=== PATIENT | male | born 1990 | race Caucasian/White ===

== ENCOUNTER 2022-03-09 13:08 | Inpatient (IN) ==
[2022-03-09] MEDS ORDERED: SODIUM CHLORIDE 0.9% 1000ML 2,000 ML IV ONE (13:54)
[2022-03-09] MEDS ORDERED: FAMOTIDINE 20MG IV PUSH 20 MG/5 ML SYR IV STA (14:06)
[2022-03-09 14:18] LABS: Hematocrit (blood only) 41.5 % (40.1-51.0); Hemoglobin 15.1 g/dl (14.0-18.0); Mean Corpuscular Hemoglobin 30.3 pg (25.0-34.0); Mean Corpuscular Hgb Conc 36.4 g/dL (32.0-36.0); Mean Corpuscular Volume 83.2 fL (80.0-100.0); Mean Platelet Volume 11.4 fL (9.4-12.4); Platelet Count 104 K/uL (130-400); RDW Coefficient of Variation 12.3 % (11.5-14.5); RDW Standard Deviation 37.5 fL (36.4-46.3); Red Blood Count 4.99 M/uL (4.63-6.08); White Blood Count 4.35 K/ul (4.8-10.8)
[2022-03-09 14:32] LABS: Basophils # (auto) 0.01 K/uL (0-0.2); Basophils % (auto) 0.2 %; Eosinophils # (auto) 0.04 K/uL (0-0.50); Eosinophils % (auto) 0.9 %; Immature Granulocytes # (auto) 0.01 K/uL (0.00-0.02); Immature Granulocytes % (auto) 0.2 %; Lymphocytes # (auto) 0.79 K/uL (1.2-3.4); Lymphocytes % (auto) 18.2 %; Monocytes # (auto) 0.17 K/uL (0.24-0.82); Monocytes % (auto) 3.9 %; Neutrophils # (auto) 3.33 K/uL (1.4-6.5); Neutrophils % (auto) 76.6 %
[2022-03-09 14:47] LABS: Lyme Ab IgG w/WB Rflx Negative (Negative)
--- NOTE | 2022-03-09 14:47 | XRay Report ---
XR chest 1V portable HISTORY: 32 years-old Male fever, n/v acute fever with nausea and vomiting COMPARISON: None TECHNIQUE: AP view of the chest FINDINGS: The cardiomediastinal and hilar silhouettes are within normal limits. No pneumothorax, pleural effusi on, airspace consolidation or overt pulmonary edema. A nipple shadow projects over the left midlung. Bones of the chest appear grossly intact. IMPRESSION: No acute process. ACT 112: Negative or not required by law. The above report was generated using voice recognition software. It may contain grammatical, syntax o r spelling errors. Electronically signed by: Eder Holley M.D. 03/09/2022 2:46 PM
[2022-03-09 14:48] LABS: Lyme Ab IgM w/WB Rflx Negative (Negative)
[2022-03-09 14:52] LABS: Albumin Globulin Ratio 1.4 (0.9-2); Albumin Level 3.8 gm/dl (3.4-5.0); BUN Creatinine Ratio 14.5 (10-20); Bilirubin,Total 6.6 mg/dl (0.2-1.0); C Reactive Protein 2.67 mg/dl (0-0.5); Calcium 8.4 mg/dl (8.5-10.1); Creatinine Clr Calc Pharmacy 119.5 ml/min; Est GFR (African American) 134.9 ml/min; Est GFR (Non-African American) 116.4 ml/min; Globulin 2.7 gm/dl (2.5-4.0); Magnesium 1.9 mg/dl (1.7-2.4); Phosphorus 1.9 mg/dl (2.5-4.9); Potassium 3.4 mmol/L (3.5-5.1); Total Protein 6.5 gm/dl (6.0-8.3)
--- NOTE | 2022-03-09 14:56 | Emergency Department Note ---
Impression & Plan Febrile illness, Jaundice, Orchitis, Splenomegaly, Hypophosphatemia, Lymphopenia, Thrombocytopenia, Transaminitis ED Provider Note NAME: ANMOL BERRY AGE: 32 SEX: M ARRIVES VIA: Walk-In INFORMANT: Patient ED PROVIDER(S): Clifton Marquez MD CHIEF COMPLAINT: Fever, bodyaches, jaundice, referred. PLAN: Disposition: Admit MEDICAL DECISION MAKING: The patient is a pleasant 32-year-old gentleman with a past medical history of ulcerative colitis on mesalamine who presents emergency department referred by his PCPs office for ongoing body aches, fevers nausea, vomiting with decreased appetite that began last Friday. The patient had blood work performed to the [facility] system including testing for tickborne illness but they understand this was negative for Lyme and Anaplasma. However was referred to emergency department for additional testing of additional tickborne illness. He reports continued to have dark yellow urine. He denies cough or congestion. He reports he did have COVID-19 in December of this year and had subsequently had negative home tests. During his recent illness he has also taken repeated home test that were negative. He does report increased soreness in bilateral testicles which has evolved over the past several days. He denies excessive Tylenol use. On arrival the patient is fatigued appearing but no distress, afebrile stable vital signs. He appears clinically dry. His joints are nonedematous or warm. He is full range of motion. He has mild lower abdominal discomfort without discrete tenderness. He has no discrete tenderness of bilateral epididymitis or testicles though reports subjective pain. Cremasteric reflex is intact. Neck is supple with full range of motion. No neurologic deficits. He has subtle icterus of bilateral sclera. EKG without overt acute ischemia. CXR negative for acute cardiopulmonary process. WBC 4.3K with lymphopenia 0.79, nonspecific. H/H within normal limits. Plate lets 104K. Chemistry without metabolic acidosis. Potassium 3.4, phosphorus 1.9 and magnesium 1.9. Lactic acid 1.1, within normal limits. Procalcitonin is mildly elevated at 0.55. ESR within normal limits. CRP is elevated 2.6. LFTs demonstrate transaminitis with total bilirubin of 6.6, direct bilirubin of 3.3 and AST of 86. High-sensitivity troponin 5.5, within normal limits. Lipase not elevated. UA without convincing evidence of infection. Respiratory viral panel/bio fire was negative including negative COVID-19 PCR. Lyme screen was negative. Babesia and Anaplasma smear negative. DNA testing pending for Anaplasma, Babesia, Ehrlichia. Monospot was negative with EBV panel pending. CT of the abdomen pelvis was performed and demonstrates moderate splenomegaly. Additionally noted is mildly dilated appendix at 8 mm with trace periappendiceal inflammation. Patient was reevaluated and has no right lower quadrant pain and so findings are nonspecific. Scrotal ultrasound demonstrates equivocal hyperemia bilateral testes which may suggest orchitis. Unclear etiology of the patient's illness at this time however pattern of CBC and LFTs would be consistent with tickborne illness such as Anaplasma and so repeat testing may help clarify this given he apparently had a negative PCR test this week. Viral illness is also still a consideration. He was treated empirically with IV doxycycline as well as IV ceftriaxone for possible component of orchitis. Case was reviewed with general surgery on-call, Dr. Mayberry, appreciate recommendations and agrees that acute appendicitis is not likely. However in the event that this may reflect early appendicitis certainly is not the primary process in would not consider surgery until his primary illness stabilizes. Case was discussed with Ki Webb, with Dr. Nerissa patel who will evaluate the patient for admission. Triage Nursing notes reviewed and agree them. Prior medical records reviewed Vital Signs: reviewed and remarkable for no significant abnormalities. Differential diagnosis: Viral syndrome, otitis, pharyngitis, pneumonia, influenza, meningitis, urinary tract infection, sepsis, bacteremia, as well as other pathologies. ER treatment provided: See below. Diagnostics interpreted by me: ECG: Normal sinus rhythm, 80 bpm, no ectopy, incomplete right bundle branch block, no overt ST elevation or depression, QTC 46, QRS 108 Cardiac Monitoring: An order for continuous cardiac monitoring was placed and demonstrated Normal sinus rhythm, 80 bpm, no ectopy. Laboratory studies: See below Imaging studies: See below Consultation(s): Ki Webb, with Dr. Nerissa patel. HPI: The patient is a pleasant 32-year-old gentleman with a past medical history of ulcerative colitis on mesalamine who presents emergency department referred by his PCPs office for ongoing body aches, fevers nausea, vomiting with decreased appetite that began last Friday. The patient had blood work performed to the [facility] system including testing for tickborne illness but they understand this was negative for Lyme and Anaplasma. However was referred to emergency department for additional testing of additional tickborne illness. He reports continued to have dark yellow urine. He denies cough or congestion. He reports he did have COVID-19 in December of this year and had subsequently had negative home tests. During his recent illness he has also taken repeated home test that were negative. He does report increased soreness in bilateral testicles which has evolved over the past several days. He denies excessive Tylenol use. ROS: See above HPI for pertinent positives & negatives. A total of 10 systems reviewed and were otherwise negative. VITALS:See Below PHYSICAL EXAMINATION: GENERAL: Awake, alert, fatigued-appearing, in no distress HENT: Normocephalic, atraumatic. Oropharynx with dry mucous membranes and otherwise unremarkable. EYES: Normal conjunctiva. Subtle icterus of bilateral sclera. NECK: Supple. No nuchal rigidity. FROM. No JVD. RESPIRATORY: Clear to auscultation. CARDIAC: Regular rate, normal rhythm. Extremities warm and well perfused. Pulses equal. ABDOMEN: Soft, non-distended. No tenderness to palpation. No rebound or guarding. No masses. RECTAL: Deferred. : No discrete tenderness of bilateral epididymitis or testicles though reports subjective pain. Cremasteric reflex is intact. MUSCULOSKELETAL: Chest examination reveals no tenderness. The back is symmetrical on inspection without obvious abnormality. There is no CVA tenderness to palpation. Joints are nonedematous or warm. He is full range of motion. He has mild lower abdominal discomfort without discrete tenderness. LOWER EXTREMITIES: Calves are equal size bilaterally and non-tender. No edema. No discoloration. NEURO: Normal sensorium. No sensory or motor deficits noted. SKIN: Mild skin flushing. Mild jaundice noted. ED COURSE: Critical Care: I have personally spent greater than 75 minutes of critical care time in the direct management of this patient. This includes bedside care, interpretation of diagnostic studies, and testing, discussion with consultants, patient, and family members, and other required patient management activities. This 75 minutes is in excess of all separately billable procedures. Clifton Marquez MD Past Med/Surg History Medical History Family history of gastrointestinal disorder Peyronie disease Ulcerative colitis Family History Other Gastrointestinal disorder Social History Smoking Status: Never smoker Do You Dip or Chew Tobacco: No; Hx Alcohol Use: Yes Alcohol type: beer and hard liquor Hx Substance Use: No Preferred Language: Wolof Communication Ability: Effective Emergency Operator Required: No Beliefs That Will Affect Care: None Current Living Situation: Spouse Other Information That Helps Us Care for You: No Feels Safe at Home: Yes Safety Concerns: Feels Safe At This Time Assistive Devices: None Allergies Allergies Allergy/AdvReac Type Severity Reaction Status Date / Time PREDISONE Allergy Unknown HIVES Uncoded 03/09/22 16:27 Home Meds Home Medications Medication Instructions Recorded Confirmed doxycycline hyclate 100 mg capsule 100 mg PO BID 03/09/22 03/09/22 famotidine 20 mg tablet (Pepcid AC) 20 mg PO BID PRN Acid Reflux 03/09/22 03/09/22 mesalamine 1.2 gram tablet,delayed 4.8 g PO DAILY 03/09/22 03/09/22 release ondansetron HCl 4 mg tablet 2 - 4 mg PO Q8 PRN Nausea 03/09/22 03/09/22 Results & Data (ED) Vital Signs Vital Signs - 24 hr 03/09/22 13:19 03/09/22 13:49 03/09/22 13:58 Temperature 37.2 C Temperature Source Oral Pulse Rate 86 80 Pulse Rate [Apical] 81 Pulse Rate from SpO2 Sensor Respiratory Rate 18 20 18 Respiratory Effort / Characteristics Non-Labored Spontaneous Respiratory Depth Normal Respiratory Pattern Regular Blood Pressure 125/86 Blood Pressure [Left Arm] 121/84 Blood Pressure Mean 99 Blood Pressure Mean [Left Arm] 96 Blood Pressure Position Sitting Pulse Oximetry 99 100 100 Oxygen Delivery Method Room Air Room Air Room Air Sepsis Recent Fever Within 48 Hours Yes Sepsis New/Unexplained Change in Mental Status No Sepsis Action Taken by Nursing No Action Required 03/09/22 13:40 03/09/22 13:46 03/09/22 13:46 Temperature Temperature Source Pulse Rate 76 79 Pulse Rate [Apical] Pulse Rate from SpO2 Sensor 79 Respiratory Rate 23 18 Respiratory Effort / Characteristics Respiratory Depth Respiratory Pattern Blood Pressure 121/84 Blood Pressure [Left Arm] Blood Pressure Mean 96 Blood Pressure Mean [Left Arm] Blood Pressure Position Pulse Oximetry 99 Oxygen Delivery Method Sepsis Recent Fever Within 48 Hours Sepsis New/Unexplained Change in Mental Status Sepsis Action Taken by Nursing 03/09/22 14:00 03/09/22 14:00 03/09/22 14:30 Temperature Temperature Source Pulse Rate 80 77 Pulse Rate [Apical] Pulse Rate from SpO2 Sensor 79 78 Respiratory Rate 17 20 Respiratory Effort / Characteristics Respiratory Depth Respiratory Pattern Blood Pressure 129/96 Blood Pressure [Left Arm] Blood Pressure Mean 107 Blood Pressure Mean [Left Arm] Blood Pressure Position Pulse Oximetry 100 99 Oxygen Delivery Method Sepsis Recent Fever Within 48 Hours Sepsis New/Unexplained Change in Mental Status Sepsis Action Taken by Nursing 03/09/22 14:54 03/09/22 14:54 03/09/22 15:00 Temperature Temperature Source Pulse Rate 79 Pulse Rate [Apical] Pulse Rate from SpO2 Sensor 81 Respiratory Rate 22 Respiratory Effort / Characteristics Respiratory Depth Respiratory Pattern Blood Pressure 124/71 122/73 Blood Pressure [Left Arm] Blood Pressure Mean 88 89 Blood Pressure Mean [Left Arm] Blood Pressure Position Pulse Oximetry 100 Oxygen Delivery Method Room Air Room Air Room Air Sepsis Recent Fever Within 48 Hours Sepsis New/Unexplained Change in Mental Status Sepsis Action Taken by Nursing 03/09/22 15:00 03/09/22 15:45 03/09/22 15:46 Temperature Temperature Source Pulse Rate 80 86 Pulse Rate [Apical] Pulse Rate from SpO2 Sensor 80 85 Respiratory Rate 19 19 Respiratory Effort / Characteristics Respiratory Depth Respiratory Pattern Blood Pressure 120/69 Blood Pressure [Left Arm] Blood Pressure Mean 86 Blood Pressure Mean [Left Arm] Blood Pressure Position Pulse Oximetry 97 100 Oxygen Delivery Method Room Air Room Air Room Air Sepsis Recent Fever Within 48 Hours Sepsis New/Unexplained Change in Mental Status Sepsis Action Taken by Nursing 03/09/22 16:56 03/09/22 19:11 03/09/22 20:20 Temperature 36.8 C Temperature Source Oral Pulse Rate Pulse Rate [Apical] 90 89 Pulse Rate from SpO2 Sensor Respiratory Rate 20 20 Respiratory Effort / Characteristics Respiratory Depth Respiratory Pattern Blood Pressure Blood Pressure [Left Arm] 118/88 125/82 Blood Pressure Mean Blood Pressure Mean [Left Arm] 98 96 Blood Pressure Position Pulse Oximetry 97 97 Oxygen Delivery Method Room Air Room Air Sepsis Recent Fever Within 48 Hours Sepsis New/Unexplained Change in Mental Status Sepsis Action Taken by Nursing 03/09/22 20:34 Temperature Temperature Source Pulse Rate Pulse Rate [Apical] 83 Pulse Rate from SpO2 Sensor Respiratory Rate 20 Respiratory Effort / Characteristics Respiratory Depth Respiratory Pattern Blood Pressure Blood Pressure [Left Arm] 123/77 Blood Pressure Mean Blood Pressure Mean [Left Arm] 92 Blood Pressure Position Pulse Oximetry 97 Oxygen Delivery Method Room Air Sepsis Recent Fever Within 48 Hours Sepsis New/Unexplained Change in Mental Status Sepsis Action Taken by Nursing Laboratory Data Attestation: I reviewed the patient's lab results. Result diagrams: 03/09/22 13:43 03/09/22 13:43 Lab Results 03/09/22 03/09/22 03/09/22 Range/Units 13:43 13:43 13:43 WBC 4.35 L (4.8-10.8) K/ul RBC 4.99 (4.63-6.08) M/uL Hgb 15.1 (14.0-18.0) g/dl Hct 41.5 (40.1-51.0) % MCV 83.2 (80.0-100.0) fL MCH 30.3 (25.0-34.0) pg MCHC 36.4 H (32.0-36.0) g/dL RDW Std Deviation 37.5 (36.4-46.3) fL RDW Coeff of Tuan 12.3 (11.5-14.5) % Plt Count 104 L (130-400) K/uL MPV 11.4 (9.4-12.4) fL Immature Gran % (Auto) 0.2 % Neut % (Auto) 76.6 % Lymph % (Auto) 18.2 % [place] % (Auto) 3.9 % Eos % (Auto) 0.9 % Baso % (Auto) 0.2 % Neut # (Auto) 3.33 (1.4-6.5) K/uL Lymph # (Auto) 0.79 L (1.2-3.4) K/uL [place] # (Auto) 0.17 L (0.24-0.82) K/uL Eos # (Auto) 0.04 (0-0.50) K/uL Baso # (Auto) 0.01 (0-0.2) K/uL Immature Gran # (Auto) 0.01 (0.00-0.02) K/uL ESR (0-15) mm/hr Sodium 132 L (136-145) mmol/L Potassium 3.4 L (3.5-5.1) mmol/L Chloride 98 (98-107) mmol/L Carbon Dioxide 26 (21-32) mmol/L Anion Gap 8 (3-11) BUN 12 (6-23) mg/dl Creatinine 0.83 (0.6-1.4) mg/dl Est Cr Clr Drug Dosing 119.5 ml/min Est GFR ( Amer) 134.9 ml/min Est GFR (Non-Af Amer) 116.4 ml/min BUN/Creatinine Ratio 14.5 (10-20) Glucose 123 H (70-99(Fasting)) mg/dl Lactate (0.4-2.0) mmol/L Calcium 8.4 L (8.5-10.1) mg/dl Phosphorus 1.9 L (2.5-4.9) mg/dl Magnesium 1.9 (1.7-2.4) mg/dl Total Bilirubin 6.6 H (0.2-1.0) mg/dl Direct Bilirubin (0-0.2) mg/dl AST 86 H (13-39) U/L ALT 15 (7-52) U/L Alkaline Phosphatase 154 H (34-104) U/L Troponin I High Sens (0-20) pg/ml C-Reactive Protein 2.67 H (0-0.5) mg/dl Total Protein 6.5 (6.0-8.3) gm/dl Albumin 3.8 (3.4-5.0) gm/dl Globulin 2.7 (2.5-4.0) gm/dl Albumin/Globulin Ratio 1.4 (0.9-2) Lipase 6 L (11-82) U/L Procalcitonin (0-0.5) ng/ml Urine Color Urine Appearance (Clear) Urine pH (4.5-7.5) Ur Specific Bliss (1.000-1.030) Urine Protein (Negative) Urine Glucose (UA) (Negative) Urine Ketones (Negative) Urine Blood (Negative) Urine Nitrite (Negative) Urine Bilirubin (Negative) Urine Urobilinogen (Negative) Ur Leukocyte Esterase (Negative) Urine WBC (Auto) (0-5) /hpf Urine RBC (Auto) (0-4) /hpf U Hyaline Cast (Auto) (0-5) /lpf U Epithel Cells (Auto) (0-5) /lpf Urine Bacteria (Auto) (Negative) Adenovirus (PCR) (NotDetected) Anaplasma Smear Cancelled See Comment Babesia Smear Cancelled See Comment B. pertussis DNA (PCR) (NotDetected) B.parapertussis DNA PCR (NotDetected) Lyme Disease IgG Ab (Negative) Lyme Disease IgM Ab (Negative) C. pneumoniae DNA (PCR) (NotDetected) Coronavirus OC43 (PCR) (NotDetected) Coronavirus HKU1 (PCR) (NotDetected) Coronavirus 229E (PCR) (NotDetected) SARS-CoV-2 (PCR) (NotDetected) Coronavirus NL63 (PCR) (NotDetected) Monoscreen (Negative) Human Metapneumovir PCR (NotDetected) Influenza Type A (PCR) (NotDetected) Influenza Type B (PCR) (NotDetected) M. pneumoniae (PCR) (NotDetected) Parainfluenza 1 (PCR) (NotDetected) Parainfluenza 2 (PCR) (NotDetected) Parainfluenza 3 (PCR) (NotDetected) Parainfluenza 4 (PCR) (NotDetected) RSV (PCR) (NotDetected) Entero/Rhino (PCR) (NotDetected) 03/09/22 03/09/22 03/09/22 Range/Units 13:43 13:43 14:16 WBC (4.8-10.8) K/ul RBC (4.63-6.08) M/uL Hgb (14.0-18.0) g/dl Hct (40.1-51.0) % MCV (80.0-100.0) fL MCH (25.0-34.0) pg MCHC (32.0-36.0) g/dL RDW Std Deviation (36.4-46.3) fL RDW Coeff of Tuan (11.5-14.5) % Plt Count (130-400) K/uL MPV (9.4-12.4) fL Immature Gran % (Auto) % Neut % (Auto) % Lymph % (Auto) % [place] % (Auto) % Eos % (Auto) % Baso % (Auto) % Neut # (Auto) (1.4-6.5) K/uL Lymph # (Auto) (1.2-3.4) K/uL [place] # (Auto) (0.24-0.82) K/uL Eos # (Auto) (0-0.50) K/uL Baso # (Auto) (0-0.2) K/uL Immature Gran # (Auto) (0.00-0.02) K/uL ESR 12 (0-15) mm/hr Sodium (136-145) mmol/L Potassium (3.5-5.1) mmol/L Chloride (98-107) mmol/L Carbon Dioxide (21-32) mmol/L Anion Gap (3-11) BUN (6-23) mg/dl Creatinine (0.6-1.4) mg/dl Est Cr Clr Drug Dosing ml/min Est GFR ( Amer) ml/min Est GFR (Non-Af Amer) ml/min BUN/Creatinine Ratio (10-20) Glucose (70-99(Fasting)) mg/dl Lactate 1.1 (0.4-2.0) mmol/L Calcium (8.5-10.1) mg/dl Phosphorus (2.5-4.9) mg/dl Magnesium (1.7-2.4) mg/dl Total Bilirubin (0.2-1.0) mg/dl Direct Bilirubin (0-0.2) mg/dl AST (13-39) U/L ALT (7-52) U/L Alkaline Phosphatase (34-104) U/L Troponin I High Sens (0-20) pg/ml C-Reactive Protein (0-0.5) mg/dl Total Protein (6.0-8.3) gm/dl Albumin (3.4-5.0) gm/dl Globulin (2.5-4.0) gm/dl Albumin/Globulin Ratio (0.9-2) Lipase (11-82) U/L Procalcitonin (0-0.5) ng/ml Urine Color Urine Appearance (Clear) Urine pH (4.5-7.5) Ur Specific Bliss (1.000-1.030) Urine Protein (Negative) Urine Glucose (UA) (Negative) Urine Ketones (Negative) Urine Blood (Negative) Urine Nitrite (Negative) Urine Bilirubin (Negative) Urine Urobilinogen (Negative) Ur Leukocyte Esterase (Negative) Urine WBC (Auto) (0-5) /hpf Urine RBC (Auto) (0-4) /hpf U Hyaline Cast (Auto) (0-5) /lpf U Epithel Cells (Auto) (0-5) /lpf Urine Bacteria (Auto) (Negative) Adenovirus (PCR) (NotDetected) Anaplasma Smear Babesia Smear B. pertussis DNA (PCR) (NotDetected) B.parapertussis DNA PCR (NotDetected) Lyme Disease IgG Ab Negative (Negative) Lyme Disease IgM Ab Negative (Negative) C. pneumoniae DNA (PCR) (NotDetected) Coronavirus OC43 (PCR) (NotDetected) Coronavirus HKU1 (PCR) (NotDetected) Coronavirus 229E (PCR) (NotDetected) SARS-CoV-2 (PCR) (NotDetected) Coronavirus NL63 (PCR) (NotDetected) Monoscreen (Negative) Human Metapneumovir PCR (NotDetected) Influenza Type A (PCR) (NotDetected) Influenza Type B (PCR) (NotDetected) M. pneumoniae (PCR) (NotDetected) Parainfluenza 1 (PCR) (NotDetected) Parainfluenza 2 (PCR) (NotDetected) Parainfluenza 3 (PCR) (NotDetected) Parainfluenza 4 (PCR) (NotDetected) RSV (PCR) (NotDetected) Entero/Rhino (PCR) (NotDetected) 03/09/22 03/09/22 03/09/22 Range/Units 14:40 14:40 14:50 WBC (4.8-10.8) K/ul RBC (4.63-6.08) M/uL Hgb (14.0-18.0) g/dl Hct (40.1-51.0) % MCV (80.0-100.0) fL MCH (25.0-34.0) pg MCHC (32.0-36.0) g/dL RDW Std Deviation (36.4-46.3) fL RDW Coeff of Tuan (11.5-14.5) % Plt Count (130-400) K/uL MPV (9.4-12.4) fL Immature Gran % (Auto) % Neut % (Auto) % Lymph % (Auto) % [place] % (Auto) % Eos % (Auto) % Baso % (Auto) % Neut # (Auto) (1.4-6.5) K/uL Lymph # (Auto) (1.2-3.4) K/uL [place] # (Auto) (0.24-0.82) K/uL Eos # (Auto) (0-0.50) K/uL Baso # (Auto) (0-0.2) K/uL Immature Gran # (Auto) (0.00-0.02) K/uL ESR (0-15) mm/hr Sodium (136-145) mmol/L Potassium (3.5-5.1) mmol/L Chloride (98-107) mmol/L Carbon Dioxide (21-32) mmol/L Anion Gap (3-11) BUN (6-23) mg/dl Creatinine (0.6-1.4) mg/dl Est Cr Clr Drug Dosing ml/min Est GFR ( Amer) ml/min Est GFR (Non-Af Amer) ml/min BUN/Creatinine Ratio (10-20) Glucose (70-99(Fasting)) mg/dl Lactate (0.4-2.0) mmol/L Calcium (8.5-10.1) mg/dl Phosphorus (2.5-4.9) mg/dl Magnesium (1.7-2.4) mg/dl Total Bilirubin (0.2-1.0) mg/dl Direct Bilirubin 3.3 H (0-0.2) mg/dl AST (13-39) U/L ALT (7-52) U/L Alkaline Phosphatase (34-104) U/L Troponin I High Sens 5.5 (0-20) pg/ml C-Reactive Protein (0-0.5) mg/dl Total Protein (6.0-8.3) gm/dl Albumin (3.4-5.0) gm/dl Globulin (2.5-4.0) gm/dl Albumin/Globulin Ratio (0.9-2) Lipase (11-82) U/L Procalcitonin 0.55 H (0-0.5) ng/ml Urine Color Urine Appearance (Clear) Urine pH (4.5-7.5) Ur Specific Bliss (1.000-1.030) Urine Protein (Negative) Urine Glucose (UA) (Negative) Urine Ketones (Negative) Urine Blood (Negative) Urine Nitrite (Negative) Urine Bilirubin (Negative) Urine Urobilinogen (Negative) Ur Leukocyte Esterase (Negative) Urine WBC (Auto) (0-5) /hpf Urine RBC (Auto) (0-4) /hpf U Hyaline Cast (Auto) (0-5) /lpf U Epithel Cells (Auto) (0-5) /lpf Urine Bacteria (Auto) (Negative) Adenovirus (PCR) Not Detected (NotDetected) Anaplasma Smear Babesia Smear B. pertussis DNA (PCR) Not Detected (NotDetected) B.parapertussis DNA PCR Not Detected (NotDetected) Lyme Disease IgG Ab (Negative) Lyme Disease IgM Ab (Negative) C. pneumoniae DNA (PCR) Not Detected (NotDetected) Coronavirus OC43 (PCR) Not Detected (NotDetected) Coronavirus HKU1 (PCR) Not Detected (NotDetected) Coronavirus 229E (PCR) Not Detected (NotDetected) SARS-CoV-2 (PCR) Not Detected (NotDetected) Coronavirus NL63 (PCR) Not Detected (NotDetected) Monoscreen Negative (Negative) Human Metapneumovir PCR Not Detected (NotDetected) Influenza Type A (PCR) Not Detected (NotDetected) Influenza Type B (PCR) Not Detected (NotDetected) M. pneumoniae (PCR) Not Detected (NotDetected) Parainfluenza 1 (PCR) Not Detected (NotDetected) Parainfluenza 2 (PCR) Not Detected (NotDetected) Parainfluenza 3 (PCR) Not Detected (NotDetected) Parainfluenza 4 (PCR) Not Detected (NotDetected) RSV (PCR) Not Detected (NotDetected) Entero/Rhino (PCR) Not Detected (NotDetected) 03/09/22 Range/Units 15:33 WBC (4.8-10.8) K/ul RBC (4.63-6.08) M/uL Hgb (14.0-18.0) g/dl Hct (40.1-51.0) % MCV (80.0-100.0) fL MCH (25.0-34.0) pg MCHC (32.0-36.0) g/dL RDW Std Deviation (36.4-46.3) fL RDW Coeff of Tuan (11.5-14.5) % Plt Count (130-400) K/uL MPV (9.4-12.4) fL Immature Gran % (Auto) % Neut % (Auto) % Lymph % (Auto) % [place] % (Auto) % Eos % (Auto) % Baso % (Auto) % Neut # (Auto) (1.4-6.5) K/uL Lymph # (Auto) (1.2-3.4) K/uL [place] # (Auto) (0.24-0.82) K/uL Eos # (Auto) (0-0.50) K/uL Baso # (Auto) (0-0.2) K/uL Immature Gran # (Auto) (0.00-0.02) K/uL ESR (0-15) mm/hr Sodium (136-145) mmol/L Potassium (3.5-5.1) mmol/L Chloride (98-107) mmol/L Carbon Dioxide (21-32) mmol/L Anion Gap (3-11) BUN (6-23) mg/dl Creatinine (0.6-1.4) mg/dl Est Cr Clr Drug Dosing ml/min Est GFR ( Amer) ml/min Est GFR (Non-Af Amer) ml/min BUN/Creatinine Ratio (10-20) Glucose (70-99(Fasting)) mg/dl Lactate (0.4-2.0) mmol/L Calcium (8.5-10.1) mg/dl Phosphorus (2.5-4.9) mg/dl Magnesium (1.7-2.4) mg/dl Total Bilirubin (0.2-1.0) mg/dl Direct Bilirubin (0-0.2) mg/dl AST (13-39) U/L ALT (7-52) U/L Alkaline Phosphatase (34-104) U/L Troponin I High Sens (0-20) pg/ml C-Reactive Protein (0-0.5) mg/dl Total Protein (6.0-8.3) gm/dl Albumin (3.4-5.0) gm/dl Globulin (2.5-4.0) gm/dl Albumin/Globulin Ratio (0.9-2) Lipase (11-82) U/L Procalcitonin (0-0.5) ng/ml Urine Color Dark Yellow Urine Appearance Cloudy A (Clear) Urine pH 7.5 (4.5-7.5) Ur Specific Bliss 1.017 (1.000-1.030) Urine Protein Trace H (Negative) Urine Glucose (UA) Negative (Negative) Urine Ketones Trace H (Negative) Urine Blood Negative (Negative) Urine Nitrite Positive A (Negative) Urine Bilirubin 2+ H (Negative) Urine Urobilinogen Positive H (Negative) Ur Leukocyte Esterase Trace H (Negative) Urine WBC (Auto) 1-5 (0-5) /hpf Urine RBC (Auto) 10-30 H (0-4) /hpf U Hyaline Cast (Auto) 1-5 (0-5) /lpf U Epithel Cells (Auto) 0-5 (0-5) /lpf Urine Bacteria (Auto) Negative (Negative) Adenovirus (PCR) (NotDetected) Anaplasma Smear Babesia Smear B. pertussis DNA (PCR) (NotDetected) B.parapertussis DNA PCR (NotDetected) Lyme Disease IgG Ab (Negative) Lyme Disease IgM Ab (Negative) C. pneumoniae DNA (PCR) (NotDetected) Coronavirus OC43 (PCR) (NotDetected) Coronavirus HKU1 (PCR) (NotDetected) Coronavirus 229E (PCR) (NotDetected) SARS-CoV-2 (PCR) (NotDetected) Coronavirus NL63 (PCR) (NotDetected) Monoscreen (Negative) Human Metapneumovir PCR (NotDetected) Influenza Type A (PCR) (NotDetected) Influenza Type B (PCR) (NotDetected) M. pneumoniae (PCR) (NotDetected) Parainfluenza 1 (PCR) (NotDetected) Parainfluenza 2 (PCR) (NotDetected) Parainfluenza 3 (PCR) (NotDetected) Parainfluenza 4 (PCR) (NotDetected) RSV (PCR) (NotDetected) Entero/Rhino (PCR) (NotDetected) Administered Medications Discontinued Medications Sodium Chloride (Nss 1000ml) 2,000 mls @ 999 mls/hr IV .[id number] ONE Stop: 03/09/22 15:54 Last Infusion: 03/09/22 16:12 Dose: 0 mls/hr Documented By: Admin: 03/09/22 14:19 Dose: 999 mls/hr Documented By: MADALYN Famotidine (Pepcid 20mg Iv Push) 20 mg in 5 mls @ 2.5 mls/min IV NOW STA Stop: 03/09/22 14:07 Last Admin: 03/09/22 14:50 Dose: 2.5 mls/min Documented By: MADALYN Doxycycline Hyclate 100 mg/ (Dextrose) 110 mls @ 50 mls/hr IV NOW STA Stop: 03/09/22 20:26 Last Admin: 03/09/22 18:55 Dose: 50 mls/hr Documented By: CRISTI Ceftriaxone Sodium (Rocephin) 2,000 mg in 70 mls @ 140 mls/hr IV NOW STA Stop: 03/09/22 18:45 Last Infusion: 03/09/22 19:07 Dose: 0 mls/hr Documented By: Admin: 03/09/22 18:35 Dose: 140 mls/hr Documented By: CRISTI Ioversol (Optiray 320 100ml) 96 ml IV ONCE ONE Stop: 03/09/22 15:40 Last Admin: 03/09/22 15:40 Dose: 96 ml Documented By: DAPHNE Imaging Data Radiologist's Impression: Abdomen/Pelvis CT 03/09/22 14:[address] WITH IV CONTRAST CT DOSE: 275.25 mGy.cm HISTORY: Acute fever with nausea, vomiting and abdominal pain fever, n/v, abd pain TECHNIQUE: Multiaxial CT images of the abdomen and pelvis were performed following the IV administration of 96 cc of Optiray, A dose lowering technique was utilized adhering to the principles of ALARA. COMPARISON STUDY: None. FINDINGS: Lung bases are generally clear. No pneumatosis or pneumoperitoneum. The imaged inferior cardiac chambers are unremarkable. The spleen is enlarged measuring up to 15.6 cm in length. Mildly atrophic pancreas. Unremarkable adrenal glands. Contracted gallbladder. Unremarkable liver. There is patency of the hepatic and portal veins. Delayed phase of postcontrast imaging demonstrates unremarkable appearance of the kidneys. Symmetric enhancement without hydronephrosis. Urinary bladder wall thickening with partial distention. Unremarkable prostate. Aorta and IVC are unremarkable. There is no lymphadenopathy. No bowel obstruction or bowel wall thickening. Tiny hiatal hernia. Mild colonic fecal retention. Focus of air is noted within the proximal appendiceal lumen. The appendix measures the upper limits of normal at 8 mm. Trace inflammatory stranding adjacent to the appendiceal tip. No drainable fluid collection. No acute fracture. IMPRESSION: 1. No bowel obstruction or bowel wall thickening. 2. The appendix is mildly dilated at 8 mm and demonstrates trace periappendiceal inflammation. Correlate with clinical exam findings and patient history to exclude subtle developing acute appendicitis. 3. No pneumoperitoneum or fluid collection. 4. Moderate splenomegaly. 5. Tiny hiatal hernia. ACT 112: Negative or not required by law. The above report was generated using voice recognition software. It may contain grammatical, syntax or spelling errors. Electronically signed by: Eder Holley M.D. 03/09/2022 3:53 PM Chest X-Ray 03/09/22 14:06 XR chest 1V portable HISTORY: 32 years-old Male fever, n/v acute fever with nausea and vomiting COMPARISON: None TECHNIQUE: AP view of the chest FINDINGS: The cardiomediastinal and hilar silhouettes are within normal limits. No pneumothorax, pleural effusion, airspace consolidation or overt pulmonary edema. A nipple shadow projects over the left midlung. Bones of the chest appear grossly intact. IMPRESSION: No acute process. ACT 112: Negative or not required by law. The above report was generated using voice recognition software. It may contain grammatical, syntax or spelling errors. Electronically signed by: Eder Holley M.D. 03/09/2022 2:46 PM Scrotum Ultrasound 03/09/22 14:57 US scrotum/testicle CLINICAL HISTORY: 32 years-old Male with bilateral testicular pain. Acute pain and swelling of the scrotum COMPARISON STUDY: CT of same day TECHNIQUE: Real-time, grayscale, and color Doppler sonography of the testes and scrotum is performed. Images are reviewed in the transverse and longitudinal pl anes. FINDINGS: RIGHT HEMISCROTUM: The right testis measures 5.3 x 3.4 x 2.8 cm and the parenchyma appears unremarkable. No intratesticular mass is seen. Arterial inflow is documented with questioned mild hyperemia. The right epididymal head appears normal. No varicocele or hydrocele is identified. LEFT HEMISCROTUM: The left testis measures 4.4 x 3.2 x 3.7 cm and the parenchyma appears unremarkable. No intratesticular mass is seen. Arterial inflow is documented with questioned mild hyperemia. The left epididymal head appears normal. No varicocele or hydrocele is identified. IMPRESSION: 1. No testicular torsion or mass. 2. Equivocal hyperemia of the testicles. This finding may be physiologic, however should be correlated clinically to exclude bilateral orchitis. ACT 112: Negative or not required by law. The above report was generated using voice recognition software. It may contain grammatical, syntax or spelling errors. Electronically signed by: Eder Holley M.D. 03/09/2022 5:03 PM Discharge Plan Visit Data Chief Complaint: Dehydration Stated Complaint: NATALIIA REF, FATIGUE, DEHYDRATED, HEADACHE ED Provider: Clifton Marquez Discharge Problem: Febrile illness, Jaundice, Orchitis, Splenomegaly, Hypophosphatemia, Lymphopenia, Thrombocytopenia, Transaminitis Patient Disposition: Admitted As Inpatient Forms Stand Alone Forms: [facility] Prescriptions Prescriptions: No Action doxycycline hyclate 100 mg capsule 100 mg PO BID Rx Instructions: for 10 days , filled 03/09/22 ondansetron HCl 4 mg tablet 2 - 4 mg PO Q8 PRN (Reason: Nausea) famotidine [Pepcid AC] 20 mg Tablet 20 mg PO BID PRN (Reason: Acid Reflux) mesalamine 1.2 gram tablet,delayed release (DR/EC) 4.8 g PO DAILY Referrals Referrals: Willy Wisdom MD [Primary Care Provider] -
[2022-03-09 15:20] LABS: Bilirubin Direct 3.3 mg/dl (0-0.2)
[2022-03-09 15:21] LABS: Monotest Negative (Negative)
[2022-03-09 15:35] LABS: Procalcitonin 0.55 ng/ml (0-0.5)
[2022-03-09] MEDS ORDERED: OPTIRAY 320 100ml IV ONE (15:39)
[2022-03-09 15:54] LABS: Troponin I High Sensitivity 5.5 pg/ml (0-20)
--- NOTE | 2022-03-09 15:55 | CT Scan Report ---
ABDOMEN AND PELVIS CT WITH IV CONTRAST CT DOSE: 275.25 mGy.cm HISTORY: Acute fever with nausea, vomiting and abdominal pain fever, n/v, abd pain TECHNIQUE: Multiaxial CT images of the abdomen and pelvis were performed following the IV administrat ion of 96 cc of Optiray, A dose lowering technique was utilized adhering to the principles of ALARA. COMPARISON STUDY: None. FINDINGS: Lung bases are generally clear. No pneumatosis or pneumoperitoneum. The imaged inferior cardiac chamb ers are unremarkable. The spleen is enlarged measuring up to 15.6 cm in length. Mildly atrophic pancr eas. Unremarkable adrenal glands. Contracted gallbladder. Unremarkable liver. There is patency of the hepatic and portal veins. Delayed phase of postcontrast imaging demonstrates unremarkable appearance of the kidneys. Symmetric enhancement without hydronephrosis. Urinary bladder wall thickening with partial distention. Unremark able prostate. Aorta and IVC are unremarkable. There is no lymphadenopathy. No bowel obstruction or bowel wall thickening. Tiny hiatal hernia. Mild colonic fecal retention. Focu s of air is noted within the proximal appendiceal lumen. The appendix measures the upper limits of no rmal at 8 mm. Trace inflammatory stranding adjacent to the appendiceal tip. No drainable fluid collec tion. No acute fracture. IMPRESSION: 1. No bowel obstruction or bowel wall thickening. 2. The appendix is mildly dilated at 8 mm and demonstrates trace periappendiceal inflammation. Correl ate with clinical exam findings and patient history to exclude subtle developing acute appendicitis. 3. No pneumoperitoneum or fluid collection. 4. Moderate splenomegaly. 5. Tiny hiatal hernia. ACT 112: Negative or not required by law. The above report was generated using voice recognition software. It may contain grammatical, syntax o r spelling errors. Electronically signed by: Eder Holley M.D. 03/09/2022 3:53 PM
[2022-03-09 15:56] LABS: Adenovirus PCR Not Detected (NotDetected); Bordetella parapertussis PCR Not Detected (NotDetected); Bordetella pertussis PCR Not Detected (NotDetected); Chlamydia pneumoniae PCR Not Detected (NotDetected); Coronavirus 229E PCR Not Detected (NotDetected); Coronavirus CoV-2 (COVID19)PCR Not Detected (NotDetected); Coronavirus HKU1 PCR Not Detected (NotDetected); Coronavirus NL63 PCR Not Detected (NotDetected); Coronavirus OC43PCR Not Detected (NotDetected); Human Metapneumovirus PCR Not Detected (NotDetected); Influenza A PCR Not Detected (NotDetected); Influenza B PCR Not Detected (NotDetected); Mycoplasma pneumoniae PCR Not Detected (NotDetected); Parainfluenza Virus 1 PCR Not Detected (NotDetected); Parainfluenza Virus 2 PCR Not Detected (NotDetected); Parainfluenza Virus 3 PCR Not Detected (NotDetected); Parainfluenza Virus 4 PCR Not Detected (NotDetected); Respiratory Syncytial VirusPCR Not Detected (NotDetected); Rhinovirus/Enterovirus PCR Not Detected (NotDetected)
[2022-03-09 16:12] LABS: Appearance Urine Cloudy (Clear); Bacteria Urine Automated Negative (Negative); Blood Urine Negative (Negative); Color Urine Dark Yellow; Epithelial Cell Urine Auto 0-5 /lpf (0-5); Glucose Urine UA Negative (Negative); Ketones Urine Trace (Negative); Leukocyte Esterase Urine Trace (Negative); Nitrite Urine Positive (Negative); Specific Gravity Urine 1.017 (1.000-1.030); Urobilinogen Urine Positive (Negative); pH Urine 7.5 (4.5-7.5)
[2022-03-09 16:15] LABS: Bilirubin Urine 2+ (Negative); Protein Urine Trace (Negative)
--- NOTE | 2022-03-09 17:05 | Ultrasound Report ---
US scrotum/testicle CLINICAL HISTORY: 32 years-old Male with bilateral testicular pain. Acute pain and swelling of the s crotum COMPARISON STUDY: CT of same day TECHNIQUE: Real-time, grayscale, and color Doppler sonography of the testes and scrotum is performed. Images are reviewed in the transverse and longitudinal planes. FINDINGS: RIGHT HEMISCROTUM: The right testis measures 5.3 x 3.4 x 2.8 cm and the parenchyma appears unremarkab le. No intratesticular mass is seen. Arterial inflow is documented with questioned mild hyperemia. Th e right epididymal head appears normal. No varicocele or hydrocele is identified. LEFT HEMISCROTUM: The left testis measures 4.4 x 3.2 x 3.7 cm and the parenchyma appears unremarkable . No intratesticular mass is seen. Arterial inflow is documented with questioned mild hyperemia. The left epididymal head appears normal. No varicocele or hydrocele is identified. IMPRESSION: 1. No testicular torsion or mass. 2. Equivocal hyperemia of the testicles. This finding may be physiologic, however should be correlate d clinically to exclude bilateral orchitis. ACT 112: Negative or not required by law. The above report was generated using voice recognition software. It may contain grammatical, syntax o r spelling errors. Electronically signed by: Eder Holley M.D. 03/09/2022 5:03 PM
[2022-03-09] MEDS ORDERED: DOXYCYCLINE HYCLATE 100 MG in DEXTROSE 5% 100 ML IV STA (18:15)
[2022-03-09] MEDS ORDERED: cefTRIAXone SODIUM 2,000 MG/70 ML BAG IV STA (18:16)
--- NOTE | 2022-03-09 20:20 | History & Physical Report ---
Date of Service March 09, 2022 Assessment & Plan (1) Jaundice: (2) Abdominal pain: (3) Splenomegaly: (4) Orchitis: (5) Ulcerative colitis: (6) Electrolyte abnormality: Plan Jaundice, fever and N/V: -CT abd showed normal liver and gallbladder -no sign of any hemolysis -could be due to a viral vs tick born infection - Blood culture pending -CT abd showed splenomegaly with dilated appendix ---- pt does not have any TTP of the RLQ or LLQ ---- however will start pt on ceftriaxone and flagyl ---- NPO after midnight and surgery consult -trend CMP -zofran prn for nausea - Pepcid prn for heart burn symptoms -GI consult Orchitis with abnormal UA: -pt denied any dysuria -sexually active with his -vaccinated against MMR and no palpable swelling near the neck or jaw -will add doxy to Ceftriaxone -will send for mumps pcr Electrolyte abnormalities: -repleted phos and K+ - repeat labs in the AM UC on mesalamine: -will hold med for now -GI consult Diet: clear liquid diet then NPO after MN DVT PPx: SCD Code Status: FULL CODE Emergency Contact: : Lakeshia ([facility] Pharmacist) [phone] History of Present Illness Chief Complaint: jaundice and testicular swelling Primary Care Provider: Willy Wisdom MD Pt is a 32 y/o M with hx of UC on mesalamine and peyronies disease came into the ER with acute onset of jaundice and testicular swelling. Per pt on 03/03 pt started to experience fever, fatigue and chills. Then 3 days after he started to have erythematous rash that is warmth to touch all over his body. His PCP started him on doxy for possible tick borne infection. Pt also having intermittent nausea and vomiting (NBNB) with decreased PO intake. Today he started to have testicular swelling with jaundice. Pt denied any travel, did go into [place] 1 week ago but denied any tick bite. He works from home and vaccinated against MMR. He had COVID infection 2 months ago. He is sexually active with his and denied any dysuria and penile discharge. At bedside complained of LUQ abd soreness and testicular soreness. Denied any acute nausea, CP or SOB. Allergies Allergy/AdvReac Type Severity Reaction Status Date / Time PREDISONE Allergy Unknown HIVES Uncoded 03/09/22 16:27 Home Medications Medication Instructions Recorded Confirmed Type doxycycline hyclate 100 mg capsule 100 mg PO BID 03/09/22 03/09/22 History famotidine 20 mg tablet (Pepcid AC) 20 mg PO BID PRN Acid Reflux 03/09/22 03/09/22 History mesalamine 1.2 gram tablet,delayed 4.8 g PO DAILY 03/09/22 03/09/22 History release ondansetron HCl 4 mg tablet 2 - 4 mg PO Q8 PRN Nausea 03/09/22 03/09/22 History Past Med/Surg History Medical History Family history of gastrointestinal disorder Peyronie disease Ulcerative colitis Family History Other Gastrointestinal disorder Social History Smoking Status: Never smoker Preferred Language: Egyptian Feels Safe at Home: Yes Review of Systems Review of Systems: At least 10 Review of systems were reviewed and all negative except as indicated in HPI Physical Exam Physical Exam: General:. NAD, well developed, well nourished, average body habitus HEENT:.b/l icterus, Normocephalic and atraumatic, Normal Conjunctiva, EOMI Lungs:. No signs of respiratory distress, CTA, no wheezing or crackles Heart:. Normal S1, S2, no murmur Abdominal:.mild TTP of the LUQ, no TTP of the R or L lower quadrant, ND, Soft, normal BS MSK:. No deformities of UE and LE, No leg edema (pt did not want certified pharmacy technician): b/l testicular swelling and erythema and mild TTP Skin:on the chest area mild skin erythema that is blanching Psych:. AAOx3, normal affect Results & Data Results & Data ([facility]) Vital Signs (Past 12 Hours) Vital Signs Temp Pulse Pulse Resp BP BP Pulse Ox 03/09/22 19:11 90 20 118/88 97 03/09/22 16:56 36.8 C 03/09/22 15:46 120/69 03/09/22 15:45 86 19 100 03/09/22 15:00 80 19 97 03/09/22 15:00 122/73 03/09/22 14:54 79 22 100 03/09/22 14:54 124/71 03/09/22 14:30 77 20 99 03/09/22 14:00 80 17 100 03/09/22 14:00 129/96 03/09/22 13:46 79 18 99 03/09/22 13:46 121/84 03/09/22 13:40 76 23 03/09/22 13:58 80 18 100 03/09/22 13:49 81 20 121/84 100 03/09/22 13:19 37.2 C 86 18 125/86 99 O2 Del Method 03/09/22 19:11 Room Air 03/09/22 16:56 03/09/22 15:46 Room Air 03/09/22 15:45 Room Air 03/09/22 15:00 Room Air 03/09/22 15:00 Room Air 03/09/22 14:54 Room Air 03/09/22 14:54 Room Air 03/09/22 14:30 03/09/22 14:00 03/09/22 14:00 03/09/22 13:46 03/09/22 13:46 03/09/22 13:40 03/09/22 13:58 Room Air 03/09/22 13:49 Room Air 03/09/22 13:19 Room Air Laboratory Results Short CBC 03/09/22 Range/Units 13:43 WBC 4.35 L (4.8-10.8) K/ul Hgb 15.1 (14.0-18.0) g/dl Hct 41.5 (40.1-51.0) % Plt Count 104 L (130-400) K/uL BMP 03/09/22 13:43 Sodium 132 L Potassium 3.4 L Chloride 98 Carbon Dioxide 26 BUN 12 Creatinine 0.83 Glucose 123 H Calcium 8.4 L Liver Function 03/09/22 03/09/22 Range/Units 13:43 14:40 Total Bilirubin 6.6 H (0.2-1.0) mg/dl Direct Bilirubin 3.3 H (0-0.2) mg/dl AST 86 H (13-39) U/L ALT 15 (7-52) U/L Alkaline Phosphatase 154 H (34-104) U/L Albumin 3.8 (3.4-5.0) gm/dl Urine 03/09/22 Range/Units 15:33 Urine Color Dark Yellow Urine Appearance Cloudy A (Clear) Urine pH 7.5 (4.5-7.5) Ur Specific [place] 1.017 (1.000-1.030) Urine Protein Trace H (Negative) Urine Glucose (UA) Negative (Negative) Diagnostic Findings Abdomen/Pelvis CT 03/09/22 14:[address] WITH IV CONTRAST CT DOSE: 275.25 mGy.cm HISTORY: Acute fever with nausea, vomiting and abdominal pain fever, n/v, abd pain TECHNIQUE: Multiaxial CT images of the abdomen and pelvis were performed following the IV administration of 96 cc of Optiray, A dose lowering technique was utilized adhering to the principles of ALARA. COMPARISON STUDY: None. FINDINGS: Lung bases are generally clear. No pneumatosis or pneumoperitoneum. The imaged inferior cardiac chambers are unremarkable. The spleen is enlarged measuring up to 15.6 cm in length. Mildly atrophic pancreas. Unremarkable adrenal glands. Contracted gallbladder. Unremarkable liver. There is patency of the hepatic and portal veins. Delayed phase of postcontrast imaging demonstrates unremarkable appearance of the kidneys. Symmetric enhancement without hydronephrosis. Urinary bladder wall thickening with partial distention. Unremarkable prostate. Aorta and IVC are unremarkable. There is no lymphadenopathy. No bowel obstruction or bowel wall thickening. Tiny hiatal hernia. Mild colonic fecal retention. Focus of air is noted within the proximal appendiceal lumen. The appendix measures the upper limits of normal at 8 mm. Trace inflammatory stranding adjacent to the appendiceal tip. No drainable fluid collection. No acute fracture. IMPRESSION: 1. No bowel obstruction or bowel wall thickening. 2. The appendix is mildly dilated at 8 mm and demonstrates trace periappendiceal inflammation. Correlate with clinical exam findings and patient history to exclude subtle developing acute appendicitis. 3. No pneumoperitoneum or fluid collection. 4. Moderate splenomegaly. 5. Tiny hiatal hernia. ACT 112: Negative or not required by law. The above report was generated using voice recognition software. It may contain grammatical, syntax or spelling errors. Electronically signed by: Eder Holley M.D. 03/09/2022 3:53 PM Chest X-Ray 03/09/22 14:06 XR chest 1V portable HISTORY: 32 years-old Male fever, n/v acute fever with nausea and vomiting COMPARISON: None TECHNIQUE: AP view of the chest FINDINGS: The cardiomediastinal and hilar silhouettes are within normal limits. No pneumothorax, pleural effusion, airspace consolidation or overt pulmonary edema. A nipple shadow projects over the left midlung. Bones of the chest appear grossly intact. IMPRESSION: No acute process. ACT 112: Negative or not required by law. The above report was generated using voice recognition software. It may contain grammatical, syntax or spelling errors. Electronically signed by: Eder Holley M.D. 03/09/2022 2:46 PM Scrotum Ultrasound 03/09/22 14:57 US scrotum/testicle CLINICAL HISTORY: 32 years-old Male with bilateral testicular pain. Acute pain and swelling of the scrotum COMPARISON STUDY: CT of same day TECHNIQUE: Real-time, grayscale, and color Doppler sonography of the testes and scrotum is performed. Images are reviewed in the transverse and longitudinal planes. FINDINGS: RIGHT HEMISCROTUM: The right testis measures 5.3 x 3.4 x 2.8 cm and the parenchyma appears unremarkable. No intratesticular mass is seen. Arterial inflo w is documented with questioned mild hyperemia. The right epididymal head appears normal. No varicocele or hydrocele is identified. LEFT HEMISCROTUM: The left testis measures 4.4 x 3.2 x 3.7 cm and the parenchyma appears unremarkable. No intratesticular mass is seen. Arterial inflow is documented with questioned mild hyperemia. The left epididymal head appears normal. No varicocele or hydrocele is identified. IMPRESSION: 1. No testicular torsion or mass. 2. Equivocal hyperemia of the testicles. This finding may be physiologic, however should be correlated clinically to exclude bilateral orchitis. ACT 112: Negative or not required by law. The above report was generated using voice recognition software. It may contain grammatical, syntax or spelling errors. Electronically signed by: Eder Holley M.D. 03/09/2022 5:03 PM Code Status & VTE Plan VTE Prophylaxis Plan VTE Prophylaxis will be ordered: Yes
--- NOTE | 2022-03-09 20:41 | Communication Note ---
Date of Service: March 09, 2022 called for borderline early appendicitis in patient with elevated bilirubin and thrombocytopenia. d/w ED, no RLQ ttp. h/o UC. being admitted to medicine, reviewed scan and labs, doubt appendicitis. will assess in am.
[2022-03-09] MEDS ORDERED: ONDANSETRON INJ 2 MG/ML 2 ML VIAL IV STA (21:37)
[2022-03-09] MEDS ORDERED: POTASSIUM PHOS 3 MMOL/1 ML INFUSION IV STA (23:11)
[2022-03-09] MEDS: SODIUM CHLORIDE 0.9% 1000ML 1,000 ML IV SCH (23:41)
[2022-03-09] MEDS ORDERED: POTASSIUM PHOSPHATE 21 MMOL in SODIUM CHLORIDE 0.9% 500 ML IV ONE (23:45)
[2022-03-10] MEDS: metroNIDAZOLE 500 MG/100 ML BAG IV SCH ×4 (00:18→23:39)
[2022-03-10] MEDS: ONDANSETRON INJ 2 MG/ML 2 ML VIAL IV PRN ×3 (06:13→22:03)
[2022-03-10 06:37] LABS: Hematocrit (blood only) 35.5 % (40.1-51.0); Hemoglobin 12.8 g/dl (14.0-18.0); Mean Corpuscular Hemoglobin 30.2 pg (25.0-34.0); Mean Corpuscular Hgb Conc 36.1 g/dL (32.0-36.0); Mean Corpuscular Volume 83.7 fL (80.0-100.0); Mean Platelet Volume 11.3 fL (9.4-12.4); Platelet Count 111 K/uL (130-400); RDW Coefficient of Variation 12.5 % (11.5-14.5); RDW Standard Deviation 38.3 fL (36.4-46.3); Red Blood Count 4.24 M/uL (4.63-6.08); White Blood Count 3.97 K/ul (4.8-10.8)
[2022-03-10 06:38] LABS: Basophils # (auto) 0.01 K/uL (0-0.2); Basophils % (auto) 0.3 %; Eosinophils # (auto) 0.04 K/uL (0-0.50); Immature Granulocytes # (auto) 0.02 K/uL (0.00-0.02); Immature Granulocytes % (auto) 0.5 %; Lymphocytes % (auto) 20.2 %; Monocytes # (auto) 0.17 K/uL (0.24-0.82); Monocytes % (auto) 4.3 %; Neutrophils # (auto) 2.93 K/uL (1.4-6.5); Neutrophils % (auto) 73.7 %
[2022-03-10 06:46] LABS: Albumin Globulin Ratio 1.7 (0.9-2); Albumin Level 3.3 gm/dl (3.4-5.0); BUN Creatinine Ratio 9.7 (10-20); Bilirubin,Total 5.2 mg/dl (0.2-1.0); Calcium 7.3 mg/dl (8.5-10.1); Creatinine Clr Calc Pharmacy 137.7 ml/min; Est GFR (African American) 143.1 ml/min; Est GFR (Non-African American) 123.4 ml/min; Magnesium 1.8 mg/dl (1.7-2.4); Phosphorus 4.1 mg/dl (2.5-4.9); Potassium 3.8 mmol/L (3.5-5.1); Total Protein 5.3 gm/dl (6.0-8.3)
[2022-03-10] MEDS ORDERED: FAMOTIDINE 20 MG in SYRINGE 3 ML IV PRN (07:00)
[2022-03-10] MEDS: DOXYCYCLINE HYCLATE 100 MG in DEXTROSE 5% 100 ML IV SCH ×2 (08:22→20:15)
[2022-03-10] MEDS ORDERED: Nursing to Pharmacy Communication SCH (09:15)
[2022-03-10] MEDS: SODIUM CHLORIDE 0.9% 1000ML 1,000 ML IV SCH (09:49)
--- NOTE | 2022-03-10 09:49 | Surgery Consultation ---
Date of Consultation March 10, 2022 Assessment & Plan (1) Jaundice: 32 y/o male admitted with n/v and jaundice. Incidental dilated appendix, clinically no evidence of appendicitis. Discussed findings with patient no surgical intervention indicated may cover with abx Agree with GI consult, may represent PSC in patient with UC diet as tolerated surgery will sign off, call with questions or concerns (2) Ulcerative colitis: (3) Thrombocytopenia: (4) Abnormal CT scan, gastrointestinal tract: History of Present Illness Attending Physician: Sharmila Pham MD History of Present Illness 32 y/o male with h/o UC, admitted with n/v, jaundice, thrombocytopenia. CT with incidental dilated appendix. No pain. Allergies Allergy/AdvReac Type Severity Reaction Status Date / Time prednisone Allergy Unknown Hives Verified 03/09/22 23:35 Home Medications Medication Instructions Recorded Confirmed Type doxycycline hyclate 100 mg capsule 100 mg PO BID 03/09/22 03/09/22 History famotidine 20 mg tablet (Pepcid AC) 20 mg PO BID PRN Acid Reflux 03/09/22 03/09/22 History mesalamine 1.2 gram tablet,delayed 4.8 g PO DAILY 03/09/22 03/09/22 History release ondansetron HCl 4 mg tablet 2 - 4 mg PO Q8 PRN Nausea 03/09/22 03/09/22 History Patient History Medical History (Updated 03/10/22 @ 09:46 by Leon Mayberry DO, FACS) Abnormal CT scan, gastrointestinal tract Family history of gastrointestinal disorder Peyronie disease Ulcerative colitis Family History Other Gastrointestinal disorder Social History Smoking Status: Never smoker Do You Dip or Chew Tobacco: No; Hx Alcohol Use: Yes Alcohol type: beer and hard liquor Hx Substance Use: No Preferred Language: Tamazight Communication Ability: Effective Wood Repatcher Required: No Beliefs That Will Affect Care: None Current Living Situation: Spouse Other Information That Helps Us Care for You: No Feels Safe at Home: Yes Safety Concerns: Feels Safe At This Time Assistive Devices: None Review of Systems Review of Systems: All systems reviewed & are unremarkable except as noted in HPI & below Physical Exam Constitutional: WD/WN, vitals as above Respiratory: normal respiratory effort, lungs clear to auscultation Cardiovascular: RRR, no murmur, no edema Gastrointestinal (Abdomen): normal bowel sounds, soft, nontender, no hepatosplenomegaly (specifically, NO TTP in RLQ) Skin: + jaundice Results & Data ([facility]) Vital Signs (Past 12 Hours) Vital Signs Temp Pulse Resp BP Pulse Ox O2 Del Method 03/10/22 07:37 36.9 C 72 16 111/67 97 Room Air 03/09/22 22:37 36.7 C 78 20 118/77 98 Room Air 03/09/22 21:44 83 20 133/77 99 Room Air Laboratory Results Laboratory Results - last 24 hr 03/09/22 03/09/22 03/09/22 13:43 13:43 13:43 WBC RBC Hgb Hct MCV MCH MCHC RDW Std Deviation RDW Coeff of Tuan Plt Count MPV Immature Gran % (Auto) Neut % (Auto) Lymph % (Auto) [place] % (Auto) Eos % (Auto) Baso % (Auto) Neut # (Auto) Lymph # (Auto) [place] # (Auto) Eos # (Auto) Baso # (Auto) Immature Gran # (Auto) ESR Sodium Potassium Chloride Carbon Dioxide Anion Gap BUN Creatinine Est Cr Clr Drug Dosing Est GFR ( Amer) Est GFR (Non-Af Amer) BUN/Creatinine Ratio Glucose Lactate Calcium Phosphorus Magnesium Total Bilirubin Direct Bilirubin AST ALT Alkaline Phosphatase Troponin I High Sens C-Reactive Protein Total Protein Albumin Globulin Albumin/Globulin Ratio Lipase Procalcitonin Urine Color Urine Appearance Urine pH Ur Specific Glenn Urine Protein Urine Glucose (UA) Urine Ketones Urine Blood Urine Nitrite Urine Bilirubin Urine Urobilinogen Ur Leukocyte Esterase Urine WBC (Auto) Urine RBC (Auto) U Hyaline Cast (Auto) U Epithel Cells (Auto) Urine Bacteria (Auto) Adenovirus (PCR) Anaplasma Smear Cancelled A. phagocytophilum DNA Pending Babesia Smear Cancelled Babesia microti DNA PCR Pending B. pertussis DNA (PCR) B.parapertussis DNA PCR Lyme Disease IgG Ab Lyme Disease IgM Ab C. pneumoniae DNA (PCR) Coronavirus OC43 (PCR) Coronavirus HKU1 (PCR) Coronavirus 229E (PCR) SARS-CoV-2 (PCR) Coronavirus NL63 (PCR) E.chaffeensis DNA (PCR) EBV Capsid Ag IgG Ab EBV Capsid Ag IgM Ab EBV EA Restrict+Diffuse EBV Nuclear Antigen Ab EBV Antibody Interp Monoscreen Human Metapneumovir PCR Influenza Type A (PCR) Influenza Type B (PCR) M. pneumoniae (PCR) Parainfluenza 1 (PCR) Parainfluenza 2 (PCR) Parainfluenza 3 (PCR) Parainfluenza 4 (PCR) Q Fever Phase I IgG Ab Q Fever Phase I IgM Ab Q Fever Phase II IgG Ab Q Fever Phase II IgM Ab RSV (PCR) Entero/Rhino (PCR) Rickettsia IgG Ab Rickettsia IgM Ab Typhus Fever IgG Ab Typhus Fever IgM Ab 03/09/22 03/09/22 03/09/22 13:43 13:43 13:43 WBC 4.35 L RBC 4.99 Hgb 15.1 Hct 41.5 MCV 83.2 MCH 30.3 MCHC 36.4 H RDW Std Deviation 37.5 RDW Coeff of Tuan 12.3 Plt Count 104 L MPV 11.4 Immature Gran % (Auto) 0.2 Neut % (Auto) 76.6 Lymph % (Auto) 18.2 [place] % (Auto) 3.9 Eos % (Auto) 0.9 Baso % (Auto) 0.2 Neut # (Auto) 3.33 Lymph # (Auto) 0.79 L [place] # (Auto) 0.17 L Eos # (Auto) 0.04 Baso # (Auto) 0.01 Immature Gran # (Auto) 0.01 ESR Sodium 132 L Potassium 3.4 L Chloride 98 Carbon Dioxide 26 Anion Gap 8 BUN 12 Creatinine 0.83 Est Cr Clr Drug Dosing 119.5 Est GFR ( Amer) 134.9 Est GFR (Non-Af Amer) 116.4 BUN/Creatinine Ratio 14.5 Glucose 123 H Lactate Calcium 8.4 L Phosphorus 1.9 L Magnesium 1.9 Total Bilirubin 6.6 H Direct Bilirubin AST 86 H ALT 15 Alkaline Phosphatase 154 H Troponin I High Sens C-Reactive Protein 2.67 H Total Protein 6.5 Albumin 3.8 Globulin 2.7 Albumin/Globulin Ratio 1.4 Lipase 6 L Procalcitonin Urine Color Urine Appearance Urine pH Ur Specific Glenn Urine Protein Urine Glucose (UA) Urine Ketones Urine Blood Urine Nitrite Urine Bilirubin Urine Urobilinogen Ur Leukocyte Esterase Urine WBC (Auto) Urine RBC (Auto) U Hyaline Cast (Auto) U Epithel Cells (Auto) Urine Bacteria (Auto) Adenovirus (PCR) Anaplasma Smear See Comment A. phagocytophilum DNA Babesia Smear See Comment Babesia microti DNA PCR B. pertussis DNA (PCR) B.parapertussis DNA PCR Lyme Disease IgG Ab Negative Lyme Disease IgM Ab Negative C. pneumoniae DNA (PCR) Coronavirus OC43 (PCR) Coronavirus HKU1 (PCR) Coronavirus 229E (PCR) SARS-CoV-2 (PCR) Coronavirus NL63 (PCR) E.chaffeensis DNA (PCR) EBV Capsid Ag IgG Ab EBV Capsid Ag IgM Ab EBV EA Restrict+Diffuse EBV Nuclear Antigen Ab EBV Antibody Interp Monoscreen Human Metapneumovir PCR Influenza Type A (PCR) Influenza Type B (PCR) M. pneumoniae (PCR) Parainfluenza 1 (PCR) Parainfluenza 2 (PCR) Parainfluenza 3 (PCR) Parainfluenza 4 (PCR) Q Fever Phase I IgG Ab Q Fever Phase I IgM Ab Q Fever Phase II IgG Ab Q Fever Phase II IgM Ab RSV (PCR) Entero/Rhino (PCR) Rickettsia IgG Ab Rickettsia IgM Ab Typhus Fever IgG Ab Typhus Fever IgM Ab 03/09/22 03/09/22 03/09/22 13:43 14:16 14:40 WBC RBC Hgb Hct MCV MCH MCHC RDW Std Deviation RDW Coeff of Tuan Plt Count MPV Immature Gran % (Auto) Neut % (Auto) Lymph % (Auto) [place] % (Auto) Eos % (Auto) Baso % (Auto) Neut # (Auto) Lymph # (Auto) [place] # (Auto) Eos # (Auto) Baso # (Auto) Immature Gran # (Auto) ESR 12 Sodium Potassium Chloride Carbon Dioxide Anion Gap BUN Creatinine Est Cr Clr Drug Dosing Est GFR ( Amer) Est GFR (Non-Af Amer) BUN/Creatinine Ratio Glucose Lactate 1.1 Calcium Phosphorus Magnesium Total Bilirubin Direct Bilirubin AST ALT Alkaline Phosphatase Troponin I High Sens C-Reactive Protein Total Protein Albumin Globulin Albumin/Globulin Ratio Lipase Procalcitonin Urine Color Urine Appearance Urine pH Ur Specific Glenn Urine Protein Urine Glucose (UA) Urine Ketones Urine Blood Urine Nitrite Urine Bilirubin Urine Urobilinogen Ur Leukocyte Esterase Urine WBC (Auto) Urine RBC (Auto) U Hyaline Cast (Auto) U Epithel Cells (Auto) Urine Bacteria (Auto) Adenovirus (PCR) Anaplasma Smear A. phagocytophilum DNA Babesia Smear Babesia microti DNA PCR B. pertussis DNA (PCR) B.parapertussis DNA PCR Lyme Disease IgG Ab Lyme Disease IgM Ab C. pneumoniae DNA (PCR) Coronavirus OC43 (PCR) Coronavirus HKU1 (PCR) Coronavirus 229E (PCR) SARS-CoV-2 (PCR) Coronavirus NL63 (PCR) E.chaffeensis DNA (PCR) Pending EBV Capsid Ag IgG Ab EBV Capsid Ag IgM Ab EBV EA Restrict+Diffuse EBV Nuclear Antigen Ab EBV Antibody Interp Monoscreen Human Metapneumovir PCR Influenza Type A (PCR) Influenza Type B (PCR) M. pneumoniae (PCR) Parainfluenza 1 (PCR) Parainfluenza 2 (PCR) Parainfluenza 3 (PCR) Parainfluenza 4 (PCR) Q Fever Phase I IgG Ab Q Fever Phase I IgM Ab Q Fever Phase II IgG Ab Q Fever Phase II IgM Ab RSV (PCR) Entero/Rhino (PCR) Rickettsia IgG Ab Rickettsia IgM Ab Typhus Fever IgG Ab Typhus Fever IgM Ab 03/09/22 03/09/22 03/09/22 14:40 14:40 14:40 WBC RBC Hgb Hct MCV MCH MCHC RDW Std Deviation RDW Coeff of Tuan Plt Count MPV Immature Gran % (Auto) Neut % (Auto) Lymph % (Auto) [place] % (Auto) Eos % (Auto) Baso % (Auto) Neut # (Auto) Lymph # (Auto) [place] # (Auto) Eos # (Auto) Baso # (Auto) Immature Gran # (Auto) ESR Sodium Potassium Chloride Carbon Dioxide Anion Gap BUN Creatinine Est Cr Clr Drug Dosing Est GFR ( Amer) Est GFR (Non-Af Amer) BUN/Creatinine Ratio Glucose Lactate Calcium Phosphorus Magnesium Total Bilirubin Direct Bilirubin 3.3 H AST ALT Alkaline Phosphatase Troponin I High Sens 5.5 C-Reactive Protein Total Protein Albumin Globulin Albumin/Globulin Ratio Lipase Procalcitonin 0.55 H Urine Color Urine Appearance Urine pH Ur Specific Glenn Urine Protein Urine Glucose (UA) Urine Ketones Urine Blood Urine Nitrite Urine Bilirubin Urine Urobilinogen Ur Leukocyte Esterase Urine WBC (Auto) Urine RBC (Auto) U Hyaline Cast (Auto) U Epithel Cells (Auto) Urine Bacteria (Auto) Adenovirus (PCR) Anaplasma Smear A. phagocytophilum DNA Babesia Smear Babesia microti DNA PCR B. pertussis DNA (PCR) B.parapertussis DNA PCR Lyme Disease IgG Ab Lyme Disease IgM Ab C. pneumoniae DNA (PCR) Coronavirus OC43 (PCR) Coronavirus HKU1 (PCR) Coronavirus 229E (PCR) SARS-CoV-2 (PCR) Coronavirus NL63 (PCR) E.chaffeensis DNA (PCR) EBV Capsid Ag IgG Ab EBV Capsid Ag IgM Ab EBV EA Restrict+Diffuse EBV Nuclear Antigen Ab EBV Antibody Interp Monoscreen Negative Human Metapneumovir PCR Influenza Type A (PCR) Influenza Type B (PCR) M. pneumoniae (PCR) Parainfluenza 1 (PCR) Parainfluenza 2 (PCR) Parainfluenza 3 (PCR) Parainfluenza 4 (PCR) Q Fever Phase I IgG Ab Pending Q Fever Phase I IgM Ab Pending Q Fever Phase II IgG Ab Pending Q Fever Phase II IgM Ab Pending RSV (PCR) Entero/Rhino (PCR) Rickettsia IgG Ab Pending Rickettsia IgM Ab Pending Typhus Fever IgG Ab Pending Typhus Fever IgM Ab Pending 03/09/22 03/09/22 03/09/22 14:40 14:50 15:33 WBC RBC Hgb Hct MCV MCH MCHC RDW Std Deviation RDW Coeff of Tuan Plt Count MPV Immature Gran % (Auto) Neut % (Auto) Lymph % (Auto) [place] % (Auto) Eos % (Auto) Baso % (Auto) Neut # (Auto) Lymph # (Auto) [place] # (Auto) Eos # (Auto) Baso # (Auto) Immature Gran # (Auto) ESR Sodium Potassium Chloride Carbon Dioxide Anion Gap BUN Creatinine Est Cr Clr Drug Dosing Est GFR ( Amer) Est GFR (Non-Af Amer) BUN/Creatinine Ratio Glucose Lactate Calcium Phosphorus Magnesium Total Bilirubin Direct Bilirubin AST ALT Alkaline Phosphatase Troponin I High Sens C-Reactive Protein Total Protein Albumin Globulin Albumin/Globulin Ratio Lipase Procalcitonin Urine Color Dark Yellow Urine Appearance Cloudy A Urine pH 7.5 Ur Specific Glenn 1.017 Urine Protein Trace H Urine Glucose (UA) Negative Urine Ketones Trace H Urine Blood Negative Urine Nitrite Positive A Urine Bilirubin 2+ H Urine Urobilinogen Positive H Ur Leukocyte Esterase Trace H Urine WBC (Auto) 1-5 Urine RBC (Auto) 10-30 H U Hyaline Cast (Auto) 1-5 U Epithel Cells (Auto) 0-5 Urine Bacteria (Auto) Negative Adenovirus (PCR) Not Detected Anaplasma Smear A. phagocytophilum DNA Babesia Smear Babesia microti DNA PCR B. pertussis DNA (PCR) Not Detected B.parapertussis DNA PCR Not Detected Lyme Disease IgG Ab Lyme Disease IgM Ab C. pneumoniae DNA (PCR) Not Detected Coronavirus OC43 (PCR) Not Detected Coronavirus HKU1 (PCR) Not Detected Coronavirus 229E (PCR) Not Detected SARS-CoV-2 (PCR) Not Detected Coronavirus NL63 (PCR) Not Detected E.chaffeensis DNA (PCR) EBV Capsid Ag IgG Ab Pending EBV Capsid Ag IgM Ab Pending EBV EA Restrict+Diffuse Pending EBV Nuclear Antigen Ab Pending EBV Antibody Interp Pending Monoscreen Human Metapneumovir PCR Not Detected Influenza Type A (PCR) Not Detected Influenza Type B (PCR) Not Detected M. pneumoniae (PCR) Not Detected Parainfluenza 1 (PCR) Not Detected Parainfluenza 2 (PCR) Not Detected Parainfluenza 3 (PCR) Not Detected Parainfluenza 4 (PCR) Not Detected Q Fever Phase I IgG Ab Q Fever Phase I IgM Ab Q Fever Phase II IgG Ab Q Fever Phase II IgM Ab RSV (PCR) Not Detected Entero/Rhino (PCR) Not Detected Rickettsia IgG Ab Rickettsia IgM Ab Typhus Fever IgG Ab Typhus Fever IgM Ab 03/10/22 03/10/22 05:41 05:41 WBC 3.97 L RBC 4.24 L Hgb 12.8 L Hct 35.5 L MCV 83.7 MCH 30.2 MCHC 36.1 H RDW Std Deviation 38.3 RDW Coeff of Tuan 12.5 Plt Count 111 L MPV 11.3 Immature Gran % (Auto) 0.5 Neut % (Auto) 73.7 Lymph % (Auto) 20.2 [place] % (Auto) 4.3 Eos % (Auto) 1.0 Baso % (Auto) 0.3 Neut # (Auto) 2.93 Lymph # (Auto) 0.80 L [place] # (Auto) 0.17 L Eos # (Auto) 0.04 Baso # (Auto) 0.01 Immature Gran # (Auto) 0.02 ESR Sodium 136 Potassium 3.8 Chloride 106 Carbon Dioxide 23 Anion Gap 7 BUN 7 Creatinine 0.72 Est Cr Clr Drug Dosing 137.7 Est GFR ( Amer) 143.1 Est GFR (Non-Af Amer) 123.4 BUN/Creatinine Ratio 9.7 L Glucose 110 H Lactate Calcium 7.3 L Phosphorus 4.1 D Magnesium 1.8 Total Bilirubin 5.2 H Direct Bilirubin AST 95 H ALT 14 Alkaline Phosphatase 135 H Troponin I High Sens C-Reactive Protein Total Protein 5.3 L Albumin 3.3 L Globulin 2.0 L Albumin/Globulin Ratio 1.7 Lipase Procalcitonin Urine Color Urine Appearance Urine pH Ur Specific Glenn Urine Protein Urine Glucose (UA) Urine Ketones Urine Blood Urine Nitrite Urine Bilirubin Urine Urobilinogen Ur Leukocyte Esterase Urine WBC (Auto) Urine RBC (Auto) U Hyaline Cast (Auto) U Epithel Cells (Auto) Urine Bacteria (Auto) Adenovirus (PCR) Anaplasma Smear A. phagocytophilum DNA Babesia Smear Babesia microti DNA PCR B. pertussis DNA (PCR) B.parapertussis DNA PCR Lyme Disease IgG Ab Lyme Disease IgM Ab C. pneumoniae DNA (PCR) Coronavirus OC43 (PCR) Coronavirus HKU1 (PCR) Coronavirus 229E (PCR) SARS-CoV-2 (PCR) Coronavirus NL63 (PCR) E.chaffeensis DNA (PCR) EBV Capsid Ag IgG Ab EBV Capsid Ag IgM Ab EBV EA Restrict+Diffuse EBV Nuclear Antigen Ab EBV Antibody Interp Monoscreen Human Metapneumovir PCR Influenza Type A (PCR) Influenza Type B (PCR) M. pneumoniae (PCR) Parainfluenza 1 (PCR) Parainfluenza 2 (PCR) Parainfluenza 3 (PCR) Parainfluenza 4 (PCR) Q Fever Phase I IgG Ab Q Fever Phase I IgM Ab Q Fever Phase II IgG Ab Q Fever Phase II IgM Ab RSV (PCR) Entero/Rhino (PCR) Rickettsia IgG Ab Rickettsia IgM Ab Typhus Fever IgG Ab Typhus Fever IgM Ab Diagnostic Findings [facility], [place] [phone] CT Scan Report Patient:ANMOL BERRY Admit Date:03/09/22 MR#:[id number] Address1:[address] [place] [address] Acct ID:[id number] Address2: Date:[address] [place] [address] Zip:[place] [address] Age:32 Location:ED Sex:M Room/Bed: Att Phy: Diagnosis:NATALIIA REF, FATIGUE, DEHYDRATED, HEADACHE Carol Phy:Willy Wisdom MD Service Date:03/09/22 [facility] Phy: Interpreting Phy:Eder HolleyAdmit Phy: Ordering Phy:Clifton Marquez M.D. cc: ~ ABDOMEN AND PELVIS CT WITH IV CONTRAST CT DOSE: 275.25 mGy.cm HISTORY: Acute fever with nausea, vomiting and abdominal pain fever, n/v, abd pain TECHNIQUE: Multiaxial CT images of the abdomen and pelvis were performed following the IV administration of 96 cc of Optiray, A dose lowering technique was utilized adhering to the principles of ALARA. COMPARISON STUDY: None. FINDINGS: Lung bases are generally clear. No pneumatosis or pneumoperitoneum. The imaged inferior cardiac chambers are unremarkable. The spleen is enlarged measuring up to 15.6 cm in length. Mildly atrophic pancreas. Unremarkable adrenal glands. Contracted gallbladder. Unremarkable liver. There is patency of the hepatic and portal veins. Delayed phase of postcontrast imaging demonstrates unremarkable appearance of the kidneys. Symmetric enhancement without hydronephrosis. Urinary bladder wall thickening with partial distention. Unremarkable prostate. Aorta and IVC are unremarkable. There is no lymphadenopathy. No bowel obstruction or bowel wall thickening. Tiny hiatal hernia. Mild colonic fecal retention. Focus of air is noted within the proximal appendiceal lumen. The appendix measures the upper limits of normal at 8 mm. Trace inflammatory stranding adjacent to the appendiceal tip. No drainable fluid collection. No a cute fracture. IMPRESSION: 1. No bowel obstruction or bowel wall thickening. 2. The appendix is mildly dilated at 8 mm and demonstrates trace periappendiceal inflammation. Correlate with clinical exam findings and patient history to exclude subtle developing acute appendicitis. 3. No pneumoperitoneum or fluid collection. 4. Moderate splenomegaly. 5. Tiny hiatal hernia. PG Care Time/CCT Total # of Minutes Spent Total Time Spent with Patient: Total time spent is greater than 50% in coordination of care (as documented) at patient's floor/unit and/or counseling patient: Coding Level of Care Code 11958 Inpt Consult Level 3 Diagnoses Jaundice R17 Ulcerative colitis K51.[address] scan, gastrointestinal tract R93.3
--- NOTE | 2022-03-10 13:03 | Gastrointestinal Consultation ---
Date of Consultation March 10, 2022 Assessment & Plan (1) Abnormal CT scan, gastrointestinal tract: (2) Transaminitis: (3) Ulcerative colitis: Plan direct hyperbilirubinemia in the setting of UC with pruritus and jaundice and fevers: concern for possible PSC, less likely tick borne illness recs: obtain MRCP now start mp 500 mg BID for pruritus supportive care, IVFs, trend LFTs continue mesalamine 4.8 g daily, do not suspect a UC flare at this time (bowel movements are at baseline, no hematochezia nor abdominal pains, etc.) Thank you for allowing me to participate in the care of this patient. History of Present Illness Attending Physician: Sharmila Pham MD History of Present Illness 32 y/o M with hx of UC diagnosed in 2010 on mesalamine 4.8 g daily here with jaundice, fevers, rash, and swelling of the testicles. Bilirubin noted to be above 6 with direct 3.3, elevated ALP as well. He had a blanching rash on his chest and significant pruritus, this all started 4 days ago. No known tick exposure but he is being checked for tick borne illness currently. Previously was on budesonide a few times, does not tolerate prednisone very well. never hospitalized for UC flare. CT A/P without and significant colon abnormalities nor gallstones. Has had decreased po intake as well. grandfather had crohns disease, no family hx PSC. denies joint pains, back pains, eye pains/visual symptoms. has not taken biologics or 6MP in the past. CBC and CMP reviewed. VSS. Allergies Allergy/AdvReac Type Severity Reaction Status Date / Time prednisone Allergy Unknown Hives Verified 03/09/22 23:35 Home Medications Medication Instructions Recorded Confirmed Type doxycycline hyclate 100 mg capsule 100 mg PO BID 03/09/22 03/09/22 History famotidine 20 mg tablet (Pepcid AC) 20 mg PO BID PRN Acid Reflux 03/09/22 03/09/22 History mesalamine 1.2 gram tablet,delayed 4.8 g PO DAILY 03/09/22 03/09/22 History release ondansetron HCl 4 mg tablet 2 - 4 mg PO Q8 PRN Nausea 03/09/22 03/09/22 History Patient History Medical History Abnormal CT scan, gastrointestinal tract Family history of gastrointestinal disorder Peyronie disease Ulcerative colitis Family History Other Gastrointestinal disorder Social History Smoking Status: Never smoker Do You Dip or Chew Tobacco: No; Hx Alcohol Use: Yes Alcohol type: beer and hard liquor Hx Substance Use: No Preferred Language: Latvian Communication Ability: Effective Certified Financial Planner Required: No Beliefs That Will Affect Care: None Current Living Situation: Spouse Other Information That Helps Us Care for You: No Feels Safe at Home: Yes Safety Concerns: Feels Safe At This Time Assistive Devices: None Review of Systems Constitutional: no fever, no chills and no weight loss Eyes: as per Subjective / HPI Ear, Nose, Mouth, Throat: as per Subjective / HPI Respiratory: no dyspnea and no dyspnea on exertion Cardiovascular: no chest pain and no palpitations Gastrointestinal: as per Subjective / HPI Musculoskeletal: no joint pain and no swelling Integumentary: no rash and no lesions Neurologic: no numbness and no paresthesia Psychiatric: no depression and no anxiety Endocrine: no fatigue Hematologic / Lymphatic: no easy bleeding and no easy bruising Physical Exam Constitutional: WD/WN, vitals as above Eyes: EOM intact bilaterally Neck: normal visual inspection Respiratory: normal respiratory effort, lungs clear to auscultation Cardiovascular: RRR, no murmur, no edema Gastrointestinal (Abdomen): Inspection/Auscultation: abdomen normal to inspection; abdomen not distended Percussion/Palpation: abdomen soft; abdomen nontender and no hepatosplenomegaly Musculoskeletal: Extremities: no cyanosis Gait: normal gait Skin: no rashes, warm and dry Neurologic: moves all extremities Psychiatric: A+Ox3, euthymic affect Results & Data ([facility]) Vital Signs (Past 12 Hours) Vital Signs Temp Pulse Resp BP Pulse Ox O2 Del Method 03/10/22 07:37 36.9 C 72 16 111/67 97 Room Air PG Care Time/CCT Total # of Minutes Spent Total Time Spent with Patient: Total time spent is greater than 50% in coordination of care (as documented) at patient's floor/unit and/or counseling patient: Coding Level of Care Code 57074 Inpt Consult Level [address] scan, gastrointestinal tract R93.3 Transaminitis R74.01 Ulcerative colitis K51.90
--- NOTE | 2022-03-10 14:50 | Hospitalist Progress Note ---
Date of Service March 10, 2022 Assessment & Plan (1) Jaundice: (2) Abdominal pain: (3) Splenomegaly: (4) Orchitis: (5) Ulcerative colitis: (6) Electrolyte abnormality: Plan #. Jaundice, fever and N/V: for 1 wek THIRD RIGGER #. H/o U. Colitis on mesalamine #. Concern for early appendiceal infection #. Transaminitis: trend cmp, serology, hep panel, gi. -Admitting CT abd showed normal liver and gallbladder but w/ mildly diated appendix (no abd tenderness at presentation) and splenomegaly. - Hepatic picture could be due to a viral vs tick born infection - Admitting Blood culture pending - Admitting Serology tests pending - Gen Sx evaled for concerns of inflammation of appendix, ok w/ atb and ok to resume diet. - c/w rocephin 03/09 and flagyl 03/09; nausea control/indigestion control. -GI evaled, d/w GI, MRCP, mp 500 bid, c/w mesalamine 4.8 g daily. #. Orchitis with abnormal UA: -pt denied any dysuria -sexually active with his -vaccinated against MMR and no palpable swelling near the neck or jaw -admitting scrotal usg reviewed. -c/w doxy 03/09 -will send for mumps IgG and IgM -f/u other serologies. -pt reports scrotal erythema and scrotal size improving, prehn's sign neg. #. Electrolyte abnormalities: likely 2/2 poor appetite. Monitor and replete. #. UC on mesalamine: c/w mesalamine. DVT PPx: SCD Code Status: FULL CODE Emergency Contact: : Lakeshia ([facility] Pharmacist) [phone] Admission and Anticipated Discharge Date Admission Date: March 09, 2022 Subjective Patient seen and examined at bedside as a follow-up of jaundice/abdominal pain/splenomegaly on the background of ulcerative colitis, orchitis, and electrolyte abnormalities on the background of decreased appetite. Patient was lying in bed, on room air, NAD, reports no acute events overnight. Patient does have decreased appetite since last 1 week, was n.p.o. at bedside exam, diet to be resumed after surgical clearance today. Patient denies headache or dizziness. Patient denies cough or sore throat or chest pain or palpitation. Patient denies belly pain. Patient reports improving erythema of the scrotum and testicular size. Patient reports feeling better. Physical Exam Physical Exam: GENERAL: Alert and oriented x3. NAD, on RA. HEENT: No pallor, + icterus. Pupils equal, round and reactive to light. Oral mucosa moist. NECK: No JVD, no neck masses. HEART: S1 and S2 heard. Regular rate and rhythm. No murmur, no gallop. RESPIRATORY SYSTEM: Normal AP diameter. No accessory muscle use. No wheezing, no crackles. ABDOMEN: Soft, bowel sounds present, nontender, no distention. CENTRAL NERVOUS SYSTEM: No facial droop. Speech is clear. Obeys simple commands. Moves extremities. EXTREMITIES: No edema, no erythema seen. : scrotal erythema, no testicular tenderness, Prehn's sign negative. Results & Data Results & Data ([facility]) Vital Signs (Past 12 Hours) Vital Signs Temp Pulse Resp BP Pulse Ox O2 Del Method 03/10/22 07:37 36.9 C 72 16 111/67 97 Room Air
[2022-03-10] MEDS: ursodioL 300 MG CAP PO SCH ×2 (16:30→20:16)
--- NOTE | 2022-03-10 16:45 | Magnetic Resonance Report ---
MRCP CLINICAL HISTORY: transaminitis TECHNIQUE: Utilizing a 1.5 Nuria magnet and dedicated coil, multiplanar, multiecho imaging of the [facility] er abdomen was performed utilizing heavily T2 weighted pulsing sequences without IV contrast. COMPARISON STUDY: CT of the abdomen and pelvis March 09, 2022. FINDINGS: No intra or extrahepatic biliary ductal dilatation is present. No common bile duct calculi are identified. Common bile duct is unremarkable on this examination. There is apparent mild irregula rity of the intrahepatic bile ducts with possible areas of narrowing. However, the findings are not d efinitive for primary sclerosing cholangitis. Course and caliber of the main pancreatic duct are norm al. Possible small gallstone within the gallbladder. There is no pericholecystic fluid. Spleen is mil dly enlarged, measuring 14.3 cm in maximal dimension. Unenhanced images of the adrenal glands, kidney s are unremarkable. There is pancreatic glandular atrophy. No hepatic lesions are identified on unenh anced exam. Caliber of visualized small and large bowel are normal. IMPRESSION: 1. No biliary ductal dilatation. No common bile duct calculi. 2. Apparent mild multifocal irregularity of the intrahepatic bile ducts with areas of narrowing. This is likely artifactual however etiologies such as primary sclerosing cholangitis cannot be completely excluded. 3. Mild splenomegaly. 4. Pancreatic glandular atrophy. ACT 112: Negative or not required by law. Electronically signed by: Florian Marie M.D. 03/10/2022 4:43 PM
[2022-03-10] MEDS: cefTRIAXone SODIUM 2,000 MG in DEXTROSE 5% 50 ML IV SCH (17:45)
--- NOTE | 2022-03-10 22:50 | Electrocardiogram Report ---
Test Reason : Blood Pressure : / mmHG Vent. Rate : 080 BPM Atrial Rate : 080 BPM P-R Int : 154 ms QRS Dur : 108 ms QT Int : 370 ms P-R-T Axes : 046 060 035 degrees QTc Int : 426 ms Normal sinus rhythm Incomplete right bundle branch block Borderline ECG No previous ECGs available Confirmed by Frank Coreas ([id number]) on 03/10/2022 10:50:17 PM Referred By: Anali Alexander Confirmed By:Frank Coreas
[2022-03-10] MEDS ORDERED: SODIUM CHLORIDE 0.9% 1000ML 1,000 ML IV ONE (23:06)
[2022-03-10] MEDS ORDERED: PROMETHAZINE HCL 12.5 MG in SODIUM CHLORIDE 0.9% 50 ML IV PRN (23:53)
[2022-03-11 06:42] LABS: Hematocrit (blood only) 37.5 % (40.1-51.0); Hemoglobin 13.5 g/dl (14.0-18.0); Mean Corpuscular Hemoglobin 30.3 pg (25.0-34.0); Mean Corpuscular Volume 84.1 fL (80.0-100.0); Mean Platelet Volume 10.7 fL (9.4-12.4); Platelet Count 169 K/uL (130-400); RDW Coefficient of Variation 12.7 % (11.5-14.5); RDW Standard Deviation 38.5 fL (36.4-46.3); Red Blood Count 4.46 M/uL (4.63-6.08); White Blood Count 5.16 K/ul (4.8-10.8)
[2022-03-11 06:59] LABS: Albumin Globulin Ratio 1.5 (0.9-2); Albumin Level 3.5 gm/dl (3.4-5.0); BUN Creatinine Ratio 12.5 (10-20); Bilirubin,Total 4.8 mg/dl (0.2-1.0); Creatinine Clr Calc Pharmacy 137.7 ml/min; Est GFR (African American) 143.1 ml/min; Est GFR (Non-African American) 123.4 ml/min; Globulin 2.3 gm/dl (2.5-4.0); Magnesium 2.1 mg/dl (1.7-2.4); Phosphorus 3.8 mg/dl (2.5-4.9); Total Protein 5.8 gm/dl (6.0-8.3)
[2022-03-11 07:36] LABS: INR 1.2 (0.9-1.1); Prothrombin Time 12.2 Seconds (9.0-12.0)
[2022-03-11] MEDS: metroNIDAZOLE 500 MG/100 ML BAG IV SCH ×4 (09:03→23:58)
[2022-03-11] MEDS: DOXYCYCLINE HYCLATE 100 MG in DEXTROSE 5% 100 ML IV SCH ×2 (10:49→20:31)
[2022-03-11] MEDS: ursodioL 300 MG CAP PO SCH ×2 (10:50→20:35)
--- NOTE | 2022-03-11 13:08 | Gastroenterology Progress Note ---
Date of Service March 11, 2022 Assessment & Plan (1) Abnormal CT scan, gastrointestinal tract: (2) Elevated LFTs: Plan Though he has UC and there is a higher incidence of PSC w UC patients. His symptoms are much more suggestive of an infectious process. Would not expect thrombocytopenia, leukopenia, splenomegaly, orchitics, red/splotchy rash with PSC. He is elevated LFTs, but these developed after fever, body aches and above symptoms. Recommend consulting ID and if no ID available then [facility] Ask a Doc or discuss with ID motion picture critic in [place]. Will continue to follow LFTs and watch for serology results. Antibiotics per ID, but would continue covering for PSC until a cause of infection in identified. GI will continue to follow along, but low suspicion of PSC. Admission and Anticipated Discharge Date Admission Date: March 09, 2022 Supervising Physician Co-Signing Physician Notes Late entry: Patient was seen and examined on 03/11 with TOD Townsend whose note reflects our findings and plan. Subjective 32 yr old male w UC admitted on 03/09. Symptoms began Sat 03/02 w sore throat, swollen/painful testicles, fever, body aches. Rash on 03/06->03/08. Shows a picture of a healing insect bite in the crease of the posterior knee (by appearance, likely a tic). Yellow eyes/skin first noticed on around 03/09. Has had nausea, vomiting. 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 Doesn't feel well but no significant abdominal pain. Has UC - well controlled on po mesalamine. T Bili elevated and improving 6.6->4.1; AST elevated and continuing to increase 86->236. MRCP w slight irregularity - can't r/o PSC. No bile duct dilation. CT w moderate splenomegaly. Liver normal. Review of Systems Constitutional: + fever, + body aches, + fatigue and + malaise Eyes: has had icterus Respiratory: no cough, no dyspnea and no wheezing Cardiovascular: no chest pain, no palpitations and no edema Gastrointestinal: + abdominal pain; no nausea Genitourinary: + scrotal swelling and + testicle pain; no dysuria Integumentary: + rash jaundice Neurologic: no gait abnormality, no unsteadiness and no localized weakness Psychiatric: no depression, no anxiety and no confusion Hematologic / Lymphatic: no easy bleeding no lymphadenopathy Physical Exam Constitutional: well nourished, + ill appearing and cooperative Eyes: Pupils equal, reactive. No icterus. Neck: trachea midline, no thyromegaly Respiratory: normal respiratory effort, lungs clear to auscultation Cardiovascular: RRR, no murmur, no edema Gastrointestinal (Abdomen): normal bowel sounds, soft, nontender, no hepatosplenomegaly Skin: no rashes, warm and dry Neurologic: PERRL, EOMI, accommodation nl, no face palsy, no dysarthria Psychiatric: A+Ox3, euthymic affect Lymphatic: no cervical or axillary lymphadenopathy Results & Data ([facility]) Vital Signs (Past 12 Hours) Vital Signs Temp Pulse Resp BP Pulse Ox O2 Del Method 03/11/22 08:11 36.6 C 70 18 112/70 95 Room Air Laboratory Results T BIli 6.6 ->4.7, AST 86->236, ALk Phos 154->158, WBC 5, Hb 13, Hct 37, Plts 169, PT 12, INR 1.2, Na 135, K 4.0, Cl 103, CO2 25, BUN 9, Cr 0.92, glucose 103. Neg for RSV< pertusis, COVID, Adeno virus and anaplasmosis smear. Pending serology: Lyme, other tic born, Hep A/B/C Diagnostic Findings CTAP w IV 03/09/22: 1. No bowel obstruction or bowel wall thickening. 2. The appendix is mildly dilated at 8 mm and demonstrates trace periappendiceal inflammation. Correlate with clinical exam findings and patient history to exclude subtle developing acute appendicitis. 3. No pneumoperitoneum or fluid collection. 4. Moderate splenomegaly. 5. Tiny hiatal hernia. MRCP 03/09/22: 1. No biliary ductal dilatation. No common bile duct calculi. 2. Apparent mild multifocal irregularity of the intrahepatic bile ducts with areas of narrowing. This is likely artifactual however etiologies such as primary sclerosing cholangitis cannot be completely excluded. 3. Mild splenomegaly. 4. Pancreatic glandular atrophy. Medications Administered On Doxycycline as an OP. On Metronidazole, Doxy and Ceftriaxone as an IP
[2022-03-11] MEDS: cefTRIAXone SODIUM 2,000 MG in DEXTROSE 5% 50 ML IV SCH (16:53)
[2022-03-11] MEDS: SODIUM CHLORIDE 0.9% 1000ML 1,000 ML IV SCH (16:54)
--- NOTE | 2022-03-11 17:01 | Hospitalist Progress Note ---
Date of Service March 11, 2022 Assessment & Plan (1) Jaundice: (2) Abdominal pain: (3) Splenomegaly: (4) Orchitis: (5) Ulcerative colitis: (6) Electrolyte abnormality: Plan #. Jaundice, fever and N/V: for 1 wek CHILDCARE PROVIDER #. H/o U. Colitis on mesalamine #. Concern for early appendiceal infection #. Transaminitis: trend cmp, serology, hep panel pending, gi. LFT slightly uptrending. -Admitting CT abd showed normal liver and gallbladder but w/ mildly diated appendix (no abd tenderness at presentation) and splenomegaly. - Hepatic picture could be due to a viral vs tick born infection - Admitting Blood culture pending, NG48H - Admitting Serology tests pending - Gen Sx evaled for concerns of inflammation of appendix, ok w/ atb and ok to resume diet. - c/w rocephin 03/09 and flagyl 03/09; nausea control/indigestion control. ?? IV hydration until diet improves. -GI evaled, - mp 500 bid, c/w mesalamine 4.8 g daily. -03/10 MRCP reviewed and d/w GI. #. Orchitis with abnormal UA: -pt denied any dysuria -sexually active with his -vaccinated against MMR and no palpable swelling near the neck or jaw -admitting scrotal usg reviewed. -c/w doxy 03/09 - Await mumps IgG and IgM -f/u other serologies. so far either negative or pending -pt reports scrotal erythema and scrotal size improving, prehn's sign neg. -ID consulted, await recs. #. Electrolyte abnormalities: likely 2/2 poor appetite. Monitor and replete. #. UC on mesalamine: c/w mesalamine. DVT PPx: SCD Code Status: FULL CODE Emergency Contact: : Lakeshia ([facility] Pharmacist) [phone] Admission and Anticipated Discharge Date Admission Date: March 09, 2022 Subjective Patient seen and examined at bedside as a follow-up of jaundice/abdominal pain/splenomegaly on the background of ulcerative colitis, orchitis, and electrolyte abnormalities on the background of decreased appetite. Patient was lying in bed, on room air, NAD, reports nausea overnight requiring iv hydration and promethazine, reports diet improving slowly. Patient had decreased appetite since last 1 week CHILDCARE PROVIDER. Patient denies headache or dizziness. Patient denies cough or sore throat or chest pain or palpitation. Patient denies belly pain. Patient reports improving erythema of the scrotum and mild testicular dull pain. Patient reports feeling better. Updated pt's over the phone at bedside, answered all her questions. Physical Exam Physical Exam: GENERAL: Alert and oriented x3. NAD, on RA. HEENT: No pallor, + icterus. Pupils equal, round and reactive to light. Oral mucosa moist. NECK: No JVD, no neck masses. HEART: S1 and S2 heard. Regular rate and rhythm. No murmur, no gallop. RESPIRATORY SYSTEM: Normal AP diameter. No accessory muscle use. No wheezing, no crackles. ABDOMEN: Soft, bowel sounds present, nontender, no distention. CENTRAL NERVOUS SYSTEM: No facial droop. Speech is clear. Obeys simple commands. Moves extremities. EXTREMITIES: No edema, no erythema seen. : scrotal erythema - improving, no testicular tenderness, Prehn's sign negat alexandra. Results & Data Results & Data ([facility]) Vital Signs (Past 12 Hours) Vital Signs Temp Pulse Resp BP Pulse Ox O2 Del Method 03/11/22 15:27 37.4 C 61 18 115/74 98 Room Air 03/11/22 08:11 36.6 C 70 18 112/70 95 Room Air
[2022-03-11] MEDS: ONDANSETRON INJ 2 MG/ML 2 ML VIAL IV PRN (20:30)
[2022-03-11] MEDS: HEPARIN SOD 5,000 UNIT/0.5 ML VIAL SQ SCH (20:34)
[2022-03-12 05:16] LABS: HBSAG NON-REACTIVE (NON-REACTIVE); Hepatitis A Antibody IgM NON-REACTIVE (NON-REACTIVE); Hepatitis B Core Antibody IgM NON-REACTIVE (NON-REACTIVE)
[2022-03-12 06:46] LABS: Albumin Globulin Ratio 1.5 (0.9-2); Albumin Level 3.5 gm/dl (3.4-5.0); BUN Creatinine Ratio 19.7 (10-20); Bilirubin,Total 3.5 mg/dl (0.2-1.0); Creatinine Clr Calc Pharmacy 150.2 ml/min; Est GFR (African American) 148.3 ml/min; Est GFR (Non-African American) 127.9 ml/min; Globulin 2.3 gm/dl (2.5-4.0); Potassium 4.1 mmol/L (3.5-5.1); Total Protein 5.8 gm/dl (6.0-8.3)
[2022-03-12] MEDS: ONDANSETRON INJ 2 MG/ML 2 ML VIAL IV PRN ×2 (08:04→20:13)
[2022-03-12] MEDS: metroNIDAZOLE 500 MG/100 ML BAG IV SCH ×2 (08:16→16:26)
[2022-03-12 09:00] LABS: Basophils # (auto) 0.02 K/uL (0-0.2); Basophils % (auto) 0.4 %; Eosinophils # (auto) 0.13 K/uL (0-0.50); Eosinophils % (auto) 2.8 %; Hematocrit (blood only) 38.7 % (40.1-51.0); Hemoglobin 13.4 g/dl (14.0-18.0); Immature Granulocytes # (auto) 0.05 K/uL (0.00-0.02); Immature Granulocytes % (auto) 1.1 %; Lymphocytes # (auto) 1.19 K/uL (1.2-3.4); Lymphocytes % (auto) 25.7 %; Mean Corpuscular Hemoglobin 30.2 pg (25.0-34.0); Mean Corpuscular Hgb Conc 34.6 g/dL (32.0-36.0); Mean Corpuscular Volume 87.2 fL (80.0-100.0); Mean Platelet Volume 10.6 fL (9.4-12.4); Monocytes # (auto) 0.25 K/uL (0.24-0.82); Monocytes % (auto) 5.4 %; Neutrophils # (auto) 2.99 K/uL (1.4-6.5); Neutrophils % (auto) 64.6 %; Platelet Count 224 K/uL (130-400); RDW Coefficient of Variation 13.2 % (11.5-14.5); RDW Standard Deviation 41.4 fL (36.4-46.3); Red Blood Count 4.44 M/uL (4.63-6.08); White Blood Count 4.63 K/ul (4.8-10.8)
[2022-03-12] MEDS: HEPARIN SOD 5,000 UNIT/0.5 ML VIAL SQ SCH ×2 (09:03→20:21)
[2022-03-12] MEDS: DOXYCYCLINE HYCLATE 100 MG in DEXTROSE 5% 100 ML IV SCH ×2 (09:19→20:13)
[2022-03-12] MEDS: ursodioL 300 MG CAP PO SCH ×2 (09:32→20:21)
[2022-03-12 09:36] LABS: Albumin Level 3.5 gm/dl (3.4-5.0); Bilirubin Direct 1.9 mg/dl (0-0.2); Bilirubin,Total 3.5 mg/dl (0.2-1.0); Total Protein 5.9 gm/dl (6.0-8.3)
--- NOTE | 2022-03-12 10:43 | Gastroenterology Progress Note ---
Date of Service March 12, 2022 Assessment & Plan (1) Abnormal CT scan, gastrointestinal tract: (2) Elevated LFTs: Plan Awaiting ID opinion. Regarding possibility of PSC, if present, likely very early and current/recent fever, body aches, testicular pain more likely from a tic born illness. Will plan for OP EUS in approx 1 month. Definitely needs the EUS w liver bx if all viral serology comes back (-). Admission and Anticipated Discharge Date Admission Date: March 09, 2022 Supervising Physician Co-Signing Physician Notes Patient as seen and examined on 03/12 with Kirti Cortez whose note reflects our findings and plan Subjective Patient seen and examined at bedside as a follow-up of jaundice/abdominal pain/splenomegaly on the background of ulcerative colitis, orchitis, and electrolyte abnormalities on the background of decreased appetite. Patient was lying in bed, on room air, NAD, reports nausea overnight requiring iv hydration and promethazine, reports diet improving slowly. 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 Patient denies headache or dizziness. Patient denies cough or sore throat or chest pain or palpitation. Patient denies belly pain. Patient reports improving erythema of the scrotum and mild testicular dull pain. Patient reports feeling better. Updated pt's over the phone at bedside, answered all her questions. Review of Systems Constitutional: + fever, + body aches, + fatigue and + malaise Eyes: has had icterus Respiratory: no cough, no dyspnea and no wheezing Cardiovascular: no chest pain, no palpitations and no edema Gastrointestinal: + abdominal pain; no nausea Genitourinary: + scrotal swelling and + testicle pain; no dysuria Integumentary: + rash jaundice Neurologic: no gait abnormality, no unsteadiness and no localized weakness Psychiatric: no depression, no anxiety and no confusion Hematologic / Lymphatic: no easy bleeding no lymphadenopathy Physical Exam Constitutional: well nourished, + ill appearing and cooperative Neck: trachea midline, no thyromegaly Respiratory: normal respiratory effort, lungs clear to auscultation Cardiovascular: RRR, no murmur, no edema Gastrointestinal (Abdomen): normal bowel sounds, soft, nontender, no hepatosplenomegaly Skin: no rashes, warm and dry Neurologic: PERRL, EOMI, accommodation nl, no face palsy, no dysarthria Psychiatric: A+Ox3, euthymic affect Genitourinary: Mild redness and minimal edema; minimal testicular tenderness, no masses, no epididymal tenderness. Lymphatic: no cervical or axillary lymphadenopathy Results & Data ([facility]) Vital Signs (Past 12 Hours) Vital Signs Temp Pulse Resp BP Pulse Ox O2 Del Method 03/12/22 07:15 36.7 C 61 18 93/52 L 95 Room Air 03/11/22 23:10 36.8 C 66 18 101/58 L 97 Room Air Laboratory Results WBC 4.63, Hb 13, Hct 38, Plts 224, Na 134, K 4.1, Cl 105, CO2 24, BUN 13, Cr 0.66, glucose 115. Diagnostic Findings MRCP 03/10/22: 1. No biliary ductal dilatation. No common bile duct calculi. 2. Apparent mild multifocal irregularity of the intrahepatic bile ducts with areas of narrowing. This is likely artifactual however etiologies such as primary sclerosing cholangitis cannot be completely excluded. 3. Mild splenomegaly. 4. Pancreatic glandular atrophy. CTAP w IV . No bowel obstruction or bowel wall thickening. 2. The appendix is mildly dilated at 8 mm and demonstrates trace periappendiceal inflammation. Correlate with clinical exam findings and patient history to exclude subtle developing acute appendicitis. 3. No pneumoperitoneum or fluid collection. 4. Moderate splenomegaly. 5. Tiny hiatal hernia.
[2022-03-12] MEDS: SODIUM CHLORIDE 0.9% 1000ML 1,000 ML IV SCH (11:55)
[2022-03-12] MEDS: cefTRIAXone SODIUM 2,000 MG in DEXTROSE 5% 50 ML IV SCH (17:28)
--- NOTE | 2022-03-12 17:40 | Hospitalist Progress Note ---
Date of Service March 12, 2022 Assessment & Plan (1) Jaundice: (2) Abdominal pain: (3) Splenomegaly: (4) Orchitis: (5) Ulcerative colitis: (6) Electrolyte abnormality: Plan #. Jaundice, fever and N/V: for 1 wek PATIENT REGISTRATION REP #. H/o U. Colitis on mesalamine #. Concern for early appendiceal infection #. Transaminitis: trend cmp, serology, hep panel pending, gi. LFT slightly uptrending. -Admitting CT abd showed normal liver and gallbladder but w/ mildly diated appendix (no abd tenderness at presentation) and splenomegaly. - Hepatic picture could be due to a viral vs tick born infection - Admitting Blood culture pending, NG48H - Admitting Serology tests pending - Gen Sx evaled for concerns of inflammation of appendix, ok w/ atb and ok to resume diet. - c/w rocephin 03/09 and flagyl 03/09; nausea control/indigestion control. ?? IV hydration until diet improves. -GI evaled, - mp 500 bid, c/w mesalamine 4.8 g daily. f/u as OP. -03/10 MRCP reviewed and d/w GI. -will continue atb to complete 7 day course. #. Orchitis with abnormal UA: -pt denied any dysuria -sexually active with his -vaccinated against MMR and no palpable swelling near the neck or jaw -admitting scrotal usg reviewed. -c/w doxy 03/09 - Await mumps IgG and IgM -f/u other serologies. so far either negative or pending -pt reports scrotal erythema resolved and scrotal pain improving, prehn's sign neg. -ID consulted, await recs. #. Electrolyte abnormalities: likely 2/2 poor appetite. Monitor and replete. #. UC on mesalamine: c/w mesalamine. DVT PPx: SCD Code Status: FULL CODE Emergency Contact: : Lakeshia ([facility] Pharmacist) [phone] Admission and Anticipated Discharge Date Admission Date: March 09, 2022 Subjective Patient seen and examined at bedside as a follow-up of jaundice/abdominal pain/splenomegaly on the background of ulcerative colitis, orchitis, and electrolyte abnormalities on the background of decreased appetite. Patient was lying in bed, on room air, NAD, reports nausea overnight milder this time and want iv hydration to continue, reports slowly improving appetite. Patient had decreased appetite since last 1 week PATIENT REGISTRATION REP. Patient denies headache or dizziness. Patient denies cough or sore throat or chest pain or palpitation. Patient denies belly pain. Patient reports improving erythema of the scrotum and mild testicular dull pain. Patient reports feeling better. Updated pt's over the phone and pt's parents at bedside, answered all their questions. Physical Exam Physical Exam: GENERAL: Alert and oriented x3. NAD, on RA. HEENT: No pallor, + icterus. Pupils equal, round and reactive to light. Oral mucosa moist. NECK: No JVD, no neck masses. HEART: S1 and S2 heard. Regular rate and rhythm. No murmur, no gallop. RESPIRATORY SYSTEM: Normal AP diameter. No accessory muscle use. No wheezing, no crackles. ABDOMEN: Soft, bowel sounds present, nontender, no distention. CENTRAL NERVOUS SYSTEM: No facial droop. Speech is clear. Obeys simple commands. Moves extremities. EXTREMITIES: No edema, no erythema seen. : scrotal erythema - resolved, no testicular tenderness, Prehn's sign negative. Results & Data Results & Data ([facility]) Vital Signs (Past 12 Hours) Vital Signs Temp Pulse Resp BP Pulse Ox O2 Del Method 03/12/22 15:36 36.8 C 62 18 111/72 97 Room Air 03/12/22 14:50 36.8 C 03/12/22 07:15 36.7 C 61 18 93/52 L 95 Room Air
[2022-03-12] MEDS: CALCIUM CARBONATE 500 MG CHEWABLE TAB PO PRN (18:22)
[2022-03-13] MEDS: metroNIDAZOLE 500 MG/100 ML BAG IV SCH ×3 (00:32→16:59)
[2022-03-13 07:56] LABS: Hematocrit (blood only) 40.7 % (40.1-51.0); Hemoglobin 14.3 g/dl (14.0-18.0); Mean Corpuscular Hemoglobin 29.8 pg (25.0-34.0); Mean Corpuscular Hgb Conc 35.1 g/dL (32.0-36.0); Mean Corpuscular Volume 84.8 fL (80.0-100.0); Mean Platelet Volume 9.9 fL (9.4-12.4); Platelet Count 283 K/uL (130-400); RDW Standard Deviation 39.8 fL (36.4-46.3); White Blood Count 5.77 K/ul (4.8-10.8)
[2022-03-13] MEDS: ONDANSETRON INJ 2 MG/ML 2 ML VIAL IV PRN (08:18)
[2022-03-13 08:19] LABS: Alanine Aminotransferase 50 U/L (7-52); Albumin Globulin Ratio 1.5 (0.9-2); Albumin Level 3.7 gm/dl (3.4-5.0); Alkaline Phosphatase 161 U/L (34-104); Anion Gap 6 (3-11); Aspartate Aminotransferase 323 U/L (13-39); BUN Creatinine Ratio 18.8 (10-20); Bilirubin,Total 2.7 mg/dl (0.2-1.0); Blood Urea Nitrogen 12 mg/dl (6-23); Calcium 8.7 mg/dl (8.5-10.1); Carbon Dioxide 25 mmol/L (21-32); Chloride 104 mmol/L (98-107); Creatinine Clr Calc Pharmacy 154.9 ml/min; Est GFR (African American) > 150.0 ml/min; Est GFR (Non-African American) 129.6 ml/min; Globulin 2.5 gm/dl (2.5-4.0); Glucose 108 mg/dl (70-99(Fasting)); Sodium 135 mmol/L (136-145); Total Protein 6.2 gm/dl (6.0-8.3)
[2022-03-13] MEDS: ursodioL 300 MG CAP PO SCH ×2 (08:23→20:18)
[2022-03-13] MEDS: HEPARIN SOD 5,000 UNIT/0.5 ML VIAL SQ SCH ×2 (08:23→20:19)
[2022-03-13] MEDS: MESALAMINE 1.2 GM PO SCH (09:45)
[2022-03-13] MEDS: DOXYCYCLINE HYCLATE 100 MG in DEXTROSE 5% 100 ML IV SCH ×2 (09:46→20:16)
[2022-03-13 10:08] LABS: Ehrlichia chaff DNA Bld Negative (Negative)
[2022-03-13] MEDS: cefTRIAXone SODIUM 2,000 MG in DEXTROSE 5% 50 ML IV SCH (18:02)
--- NOTE | 2022-03-13 18:59 | Hospitalist Progress Note ---
Date of Service March 13, 2022 Assessment & Plan (1) Jaundice: (2) Abdominal pain: (3) Splenomegaly: (4) Orchitis: (5) Ulcerative colitis: (6) Electrolyte abnormality: Plan #. Jaundice, fever and N/V:for 1 wek [employer] HOU[employer] #. H/o U. Colitis on mesalamine #. Concern for early appendiceal infection #. Transaminitis:trend cmp, serology, hep panel pending, gi. LFT slightly uptrending. -Admitting CT abd showed normal liver and gallbladder but w/ mildly diated appendix (no abd tenderness at presentation) and splenomegaly. - Hepatic picture could be due to a viral vs tick born infection - Admitting Blood culture pending, [id number] - Admitting Serology tests pending - Gen Sx evaled for concerns of inflammation of appendix, ok w/ atb and ok to resume diet. - c/w rocephin 03/09 and flagyl 03/09; nausea control/indigestion control. ?? IV hydration until diet improves. -GI evaled, - mp 500 bid, c/w mesalamine 4.8 g daily. f/u as OP. -03/10 MRCP reviewed and d/w GI. -will continue atb to complete 7 day course. - - patient not able to tolerate doxycycline po initially --> improving nausea so will trial PO doxycycline tomorrow 03/14/2022 - continue to monitor for clinical improvement #. Orchitis with abnormal UA: -pt denied any dysuria -sexually active with his -vaccinated against MMR and no palpable swelling near the neck or jaw -admitting scrotal usg reviewed. - c/w doxy 03/09 - Await mumps IgG and IgM -f/u other serologies. so far either negative or pending -pt reports scrotal erythema resolved and scrotal pain improving, prehn's sign neg. -ID consulted, await recs. #. Electrolyte abnormalities:likely 2/2 poor appetite. Monitor and replete. #. UC on mesalamine:c/w mesalamine. DVT PPx: SCD Code Status: FULL CODE Emergency Contact: : Lakeshia ([facility] Pharmacist) [phone] Admission and Anticipated Discharge Date Admission Date: March 09, 2022 Subjective The patient is a 32 year old man with pmh UC on mesalamine who presented for 1 week of fever, jaundice, n/v. Elevated LFTs, concern for tick borne illness, started on doxycycline. GI consulted for concern for underlying PSC given UC history, which they feel is unlikely after MRCP and improving/stable bilis and ALP. ID consulted, pending recs. Started on ceftriaxone and metronidazole for early appendicitis and orchitis, possibly. Improved clinically in all aspects, AST continued to elevated Patient reports improvement in symptoms but still with mild nausea now and then. Tolerating increased po. Denies fevers or chills, vomiting, diarrhea, dysuria, abdominal pain. Reports improvement in testicular pain, jaundice. Review of Systems Review of Systems: All systems reviewed & are unremarkable except as noted in Subjective Physical Exam Physical Exam: GENERAL: Alert an d oriented x3. NAD , on RA. HEENT: N o pallor, + icteru s. Pupils equal, round and reactive to light. Oral m ucosa moist. NECK: No JVD, no neck masses. HEART: S1 and S2 heard. Re gular rate and rhy thm. No murmur, n o gallop. RESPIRAT ORY SYSTEM: Gretel l AP diameter. No accessory muscle use. No wheezing, no crackles. ABDO MEN: Soft, bowel sounds present,no ntender, no disten tion. CENTRAL NERV OUS SYSTEM: No fa cial droop. Speec h is clear. Obeys simple commands. Moves extremities . EXTREMITIES: No edema, no erythem a seen. : scrota l erythema - resol darek, no testicular tenderness, Prehn 's sign negative. Results & Data Results & Data ([facility]) Vital Signs (Past 12 Hours) Vital Signs Temp Pulse Resp BP Pulse Ox O2 Del Method 03/13/22 15:50 37 C 60 18 110/76 98 Room Air 03/13/22 07:17 36.8 C 61 18 112/72 98 Room Air Laboratory Results Short CBC 03/13/22 Range/Units 07:35 WBC 5.77 (4.8-10.8) K/ul Hgb 14.3 (14.0-18.0) g/dl Hct 40.7 (40.1-51.0) % Plt Count 283 (130-400) K/uL [facility] 03/13/22 07:35 Sodium 135 L Potassium 4.0 Chloride 104 Carbon Dioxide 25 BUN 12 Creatinine 0.64 Glucose 108 H Calcium 8.7 Liver Function 03/13/22 Range/Units 07:35 Total Bilirubin 2.7 H (0.2-1.0) mg/dl AST 323 H (13-39) U/L ALT 50 (7-52) U/L Alkaline Phosphatase 161 H (34-104) U/L Albumin 3.7 (3.4-5.0) gm/dl Medications Administered Current Inpatient Medications Calcium Carbonate (Calcium Carbonate 500 Mg Chewable Tab) 1,000 mg PO BID PRN PRN Reason: Indigestion Stop: 04/11/22 18:04 Last Admin: 03/12/22 18:22 Dose: 1,000 mg Heparin Sodium (Porcine) (Heparin Sod 5,000 Unit/0.5 Ml Vial) 5,000 units SQ Q12 [facility] Stop: 04/10/22 20:59 Last Admin: 03/13/22 08:23 Dose: Not Given Ceftriaxone Sodium 2,000 mg/ (Dextrose) 70 mls @ 100 mls/hr IV Q24H [facility]; Protocol Stop: 03/20/22 16:59 Last Admin: 03/13/22 18:02 Dose: 100 mls/hr Doxycycline Hyclate 100 mg/ (Dextrose) 110 mls @ 50 mls/hr IV Q12H [facility] Stop: 03/20/22 05:59 Last Infusion: 03/13/22 12:00 Dose: Infused Famotidine 20 mg/ Syringe 5 mls @ 2.5 mls/min IV Q12 PRN PRN Reason: Nausea Stop: 04/09/22 06:59 Metronidazole (Flagyl) 500 mg in 100 mls @ 100 mls/hr IV Q8H [facility] Stop: 03/20/22 00:00 Last Infusion: 03/13/22 18:14 Dose: Infused Mesalamine (Mesalamine 1.2gm) 4 each PO DAILY [facility] Stop: 04/12/22 09:14 Last Admin: 03/13/22 09:45 Dose: 4 each Ondansetron HCl (Ondansetron Inj 2 Mg/Ml 2 Ml Vial) 4 mg IV Q6H PRN PRN Reason: Nausea Stop: 04/08/22 23:10 Last Admin: 03/13/22 08:18 Dose: 4 mg Ursodiol (Ursodiol 300 Mg Cap) 300 mg PO BID [facility] Stop: 04/09/22 14:59 Last Admin: 03/13/22 08:23 Dose: 300 mg
[2022-03-13] MEDS: CALCIUM CARBONATE 500 MG CHEWABLE TAB PO PRN (21:49)
[2022-03-14] MEDS: metroNIDAZOLE 500 MG/100 ML BAG IV SCH (00:03)
[2022-03-14] MEDS: ONDANSETRON INJ 2 MG/ML 2 ML VIAL IV PRN ×2 (02:25→09:28)
[2022-03-14 07:06] LABS: Hematocrit (blood only) 42.8 % (40.1-51.0); Hemoglobin 15.3 g/dl (14.0-18.0); Mean Corpuscular Hemoglobin 30.4 pg (25.0-34.0); Mean Corpuscular Hgb Conc 35.7 g/dL (32.0-36.0); Mean Corpuscular Volume 85.1 fL (80.0-100.0); Mean Platelet Volume 9.7 fL (9.4-12.4); Platelet Count 377 K/uL (130-400); RDW Coefficient of Variation 13.2 % (11.5-14.5); RDW Standard Deviation 40.1 fL (36.4-46.3); Red Blood Count 5.03 M/uL (4.63-6.08); White Blood Count 7.95 K/ul (4.8-10.8)
[2022-03-14 07:48] LABS: Alanine Aminotransferase 81 U/L (7-52); Albumin Globulin Ratio 1.6 (0.9-2); Albumin Level 4.1 gm/dl (3.4-5.0); Alkaline Phosphatase 161 U/L (34-104); Anion Gap 6 (3-11); Aspartate Aminotransferase 446 U/L (13-39); BUN Creatinine Ratio 25.4 (10-20); Bilirubin,Total 2.6 mg/dl (0.2-1.0); Blood Urea Nitrogen 16 mg/dl (6-23); Calcium 9.3 mg/dl (8.5-10.1); Carbon Dioxide 27 mmol/L (21-32); Chloride 102 mmol/L (98-107); Creatinine Clr Calc Pharmacy 157.4 ml/min; Est GFR (African American) > 150.0 ml/min; Est GFR (Non-African American) 130.4 ml/min; Globulin 2.6 gm/dl (2.5-4.0); Glucose 110 mg/dl (70-99(Fasting)); Magnesium 2.2 mg/dl (1.7-2.4); Phosphorus 4.9 mg/dl (2.5-4.9); Potassium 4.7 mmol/L (3.5-5.1); Sodium 135 mmol/L (136-145); Total Protein 6.7 gm/dl (6.0-8.3)
[2022-03-14] MEDS ORDERED: FAMOTIDINE 20 MG TAB PO PRN (08:32)
[2022-03-14] MEDS: HEPARIN SOD 5,000 UNIT/0.5 ML VIAL SQ SCH ×2 (09:28→20:42)
[2022-03-14] MEDS: ursodioL 300 MG CAP PO SCH ×2 (10:26→20:41)
[2022-03-14] MEDS: DOXYCYCLINE SUSP 25 MG/5 ML 60ML PO SCH ×2 (10:27→18:34)
[2022-03-14] MEDS: MESALAMINE 1.2 GM PO SCH (10:28)
[2022-03-14] MEDS ORDERED: levoFLOXacin 500 MG TAB PO SCH (11:00)
[2022-03-14] MEDS: metroNIDAZOLE 500 MG TAB PO SCH ×3 (11:02→20:41)
--- NOTE | 2022-03-14 13:22 | Gastroenterology Progress Note ---
Date of Service March 14, 2022 Assessment & Plan (1) Abnormal CT scan, gastrointestinal tract: (2) Elevated LFTs: Plan Some conversation between ID and primary hospitalists. Initiated transfer request on the basis on need to know if PSC is present (and therefore causing/contributing to the elevated bili and AST) and no advanced endoscopist available here at [facility] until Friday AND we do not have ID available here at [facility] and there is clearly an infectious disease driving this illness - unsure if tick born (more likely) vs primarily PSC driven. Awaiting decision from transfer officer at [place]. If he is not approved for transfer then plan is: 1. Ceftriaxone was DC'ed today, will recheck LFTs tomorrow to see if improvement w/o Ceftriaxone. 2. Repeat MRCP here today. 3. Will ask Dr. Whittaker to add for an EUS/ERCP/liver bx next week. Admission and Anticipated Discharge Date Admission Date: March 09, 2022 Supervising Physician Co-Signing Physician Notes Late entry: Patient was seen and examined with TOD Townsend on 03/14. Her note reflects our findings and plan. Subjective 32, male w UC Admitted 03/09 for N/V, fever, jaundice, recent insect bite, failed OP doxycycline tx. AST moderately elevated on admission continuing to increase (446), now ALT also elevated (81). MRCP and CT w some bile duct abnormalities. Reviewed w Radiologist today who suspects PSC saying bile ducts have beading - but not clearly meeting the criteria to dx PSC. Clinically continuing to improve. Testicular tenderness is resolved. Fevers resolved. No abd pain. Rash resolved. N/V resolved. Leukopenia and thrombocytopenia needed. Review of Systems Constitutional: + fever (resolved) and + fatigue "getting stronger, more able to walk w/o weakness" Eyes: has had icterus Respiratory: no cough, no dyspnea and no wheezing Cardiovascular: no chest pain, no palpitations and no edema Gastrointestinal: + abdominal pain; no nausea Genitourinary: + scrotal swelling and + testicle pain; no dysuria Integumentary: + rash (resolved) jaundice - resolved Neurologic: no gait abnormality, no unsteadiness and no localized weakness Psychiatric: no depression, no anxiety and no confusion Hematologic / Lymphatic: no easy bleeding new 1cm subq sl tender, "bump" on right lower arm Physical Exam Constitutional: well nourished and cooperative Neck: trachea midline, no thyromegaly Respiratory: normal respiratory effort, lungs clear to auscultation Cardiovascular: RRR, no murmur, no edema Gastrointestinal (Abdomen): normal bowel sounds, soft, nontender, no hepatosplenomegaly Skin: no rashes, warm and dry Neurologic: PERRL, EOMI, accommodation nl, no face palsy, no dysarthria Psychiatric: A+Ox3, euthymic affect Lymphatic: no cervical or axillary lymphadenopathy Results & Data ([facility]) Vital Signs (Past 12 Hours) Vital Signs Temp Pulse Resp BP Pulse Ox O2 Del Method 03/14/22 07:35 36.6 C 76 18 117/77 98 Room Air Laboratory Results WBC 7.9, Hb 15.3, Hct 42.8, plts 377, Na 135, K 4.7, Cl 102, CO2 27, BUN 16, Cr 0.63, glucose 110. Diagnostic Findings MRCP 03/10/22: 1. No biliary ductal dilatation. No common bile duct calculi. 2. Apparent mild multifocal irregularity of the intrahepatic bile ducts with areas of narrowing. This is likely artifactual however etiologies such as primary sclerosing cholangitis cannot be completely excluded. 3. Mild splenomegaly. 4. Pancreatic glandular atrophy. Testicular US 03/09/22: 1. No testicular torsion or mass. 2. Equivocal hyperemia of the testicles. This finding may be physiologic, however should be correlated clinically to exclude bilateral orchitis. CTAP w IV 03/09/22: 1. No bowel obstruction or bowel wall thickening. 2. The appendix is mildly dilated at 8 mm and demonstrates trace periappendiceal inflammation. Correlate with clinical exam findings and patient history to exclude subtle developing acute appendicitis. 3. No pneumoperitoneum or fluid collection. 4. Moderate splenomegaly. 5. Tiny hiatal hernia.
--- NOTE | 2022-03-14 16:19 | Hospitalist Progress Note ---
Date of Service March 14, 2022 Assessment & Plan (1) Jaundice: (2) Abdominal pain: (3) Splenomegaly: (4) Orchitis: (5) Ulcerative colitis: (6) Electrolyte abnormality: Plan #. Jaundice, fever and N/V:for 1 wek [employer] W[employer]ER #. H/o U. Colitis on mesalamine -Admitting CT abd showed normal liver and gallbladder but w/ mildly diated appendix (no abd tenderness at presentation) and splenomegaly. - Hepatic picture could be due to a viral vs tick born infection - Admitting Blood culture pending, NGTD - Admitting Serology tests pending -will continue atb to complete 7-10 day course. - tolerated po doxycycline today 03/14/2022 - continue for 7-10 day course - continue to monitor for clinical improvement - follow up ID recs #. Transaminitis:trend cmp, serology, hep panel pending, gi. LFT slightly uptrending. -GI evaled, - mp 500 bid, c/w mesalamine 4.8 g daily. f/u as OP. -03/10 MRCP reviewed and d/w GI. - increasing AST and ALT (AST>ALT) - GI to repeat MRCP as initial was concerning for PSC but not definitive - they will consider EUS and biopsy early next week pending improvement #. Concern for early appendiceal infection - Gen Sx evaled for concerns of inflammation of appendix, ok w/ atb and ok to resume diet. - c/w rocephin 03/09 and flagyl 03/09; nausea control/indigestion control - changed to levofloxacin and po flagy due to increasing LFTs on cephalosporin - treat for 1 more day - last day 03/15/2022 #. Orchitis with abnormal UA: -pt denied any dysuria -sexually active with his -vaccinated against MMR and no palpable swelling near the neck or jaw -admitting scrotal usg reviewed. - c/w doxy 03/09 - Await mumps IgG and IgM -f/u other serologies. so far either negative or pending -pt reports scrotal erythema resolved and scrotal pain improving, prehn's sign neg. -ID consulted, await recs. #. Electrolyte abnormalities:likely 2/2 poor appetite. Monitor and replete. #. UC on mesalamine:c/w mesalamine. DVT PPx: SCD Code Status: FULL CODE Emergency Contact: : Lakeshia ([facility] Pharmacist) [phone] Admission and Anticipated Discharge Date Admission Date: March 09, 2022 Subjective The patient is a 32 year old man with pmh UC on mesalamine who presented for 1 week of fever, jaundice, n/v. Elevated LFTs, concern for tick borne illness, started on doxycycline. GI consulted for concern for underlying PSC given UC history, which they feel is unlikely after MRCP and improving/stable bilis and ALP. ID consulted, pending recs. Started on ceftriaxone and metronidazole for early appendicitis and orchitis, possibly. Improved clinically in all aspects, AST continued to elevated Patient reports improvement in symptoms including nausea, tolerated po doxycycline this morning. Tolerating increased po. Denies fevers or chills, vomiting, diarrhea, dysuria, abdominal pain. Reports improvement in testicular pain, jaundice. Review of Systems Review of Systems: All systems reviewed & are unremarkable except as noted in Subjective Physical Exam Physical Exam: GENERAL: Alert an d oriented x3. NAD , on RA. HEENT: N o pallor, + icteru s. Pupils equal, round and reactive to light. Oral m ucosa moist. NECK: No JVD, no neck masses. HEART: S1 and S2 heard. Re gular rate and rhy thm. No murmur, n o gallop. RESPIRAT ORY SYSTEM: Gretel l AP diameter. No accessory muscle use. No wheezing, no crackles. ABDO MEN: Soft, bowel sounds present,no ntender, no disten tion. CENTRAL NERV OUS SYSTEM: No fa cial droop. Speec h is clear. Obeys simple commands. Moves extremities . EXTREMITIES: No edema, no erythem a seen. : scrota l erythema - resol darek, no testicular tenderness, Prehn 's sign negative. Results & Data Results & Data ([facility]) Vital Signs (Past 12 Hours) Vital Signs Temp Pulse Resp BP Pulse Ox O2 Del Method 03/14/22 07:35 36.6 C 76 18 117/77 98 Room Air Laboratory Results Short CBC 03/14/22 Range/Units 06:36 WBC 7.95 (4.8-10.8) K/ul Hgb 15.3 (14.0-18.0) g/dl Hct 42.8 (40.1-51.0) % Plt Count 377 (130-400) K/uL BMP 03/14/22 06:36 Sodium 135 L Potassium 4.7 Chloride 102 Carbon Dioxide 27 BUN 16 Creatinine 0.63 Glucose 110 H Calcium 9.3 Cardiac Enzymes 03/13/22 03/14/22 Range/Units 19:14 06:36 Total Creatine Kinase 25 L 23 L (30-223) U/L Liver Function 03/14/22 Range/Units 06:36 Total Bilirubin 2.6 H (0.2-1.0) mg/dl AST 446 H (13-39) U/L ALT 81 H (7-52) U/L Alkaline Phosphatase 161 H (34-104) U/L Albumin 4.1 (3.4-5.0) gm/dl Medications Administered Current Inpatient Medications Calcium Carbonate (Calcium Carbonate 500 Mg Chewable Tab) 1,000 mg PO BID PRN PRN Reason: Indigestion Stop: 04/11/22 18:04 Last Admin: 03/13/22 21:49 Dose: 1,000 mg Doxycycline Monohydrate (Doxycycline Susp 25 Mg/5 Ml 60ml) 100 mg PO BID [facility] Stop: 03/28/22 08:59 Last Admin: 03/14/22 10:27 Dose: 100 mg Famotidine (Famotidine 20 Mg Tab) 20 mg PO BID PRN PRN Reason: Heartburn Stop: 04/13/22 08:31 Heparin Sodium (Porcine) (Heparin Sod 5,000 Unit/0.5 Ml Vial) 5,000 units SQ Q1 2 [facility] Stop: 04/10/22 20:59 Last Admin: 03/14/22 09:28 Dose: Not Given Levofloxacin (Levofloxacin 500 Mg Tab) 500 mg PO DAILY@1100 [facility] Stop: 03/16/22 18:59 Last Admin: 03/14/22 11:02 Dose: 500 mg Mesalamine (Mesalamine 1.2gm) 4 each PO DAILY [facility] Stop: 04/12/22 09:14 Last Admin: 03/14/22 10:28 Dose: 4 each Metronidazole (Metronidazole 500 Mg Tab) 500 mg PO TID [facility] Stop: 03/16/22 18:59 Last Admin: 03/14/22 16:02 Dose: 500 mg Ondansetron HCl (Ondansetron Inj 2 Mg/Ml 2 Ml Vial) 4 mg IV Q6H PRN PRN Reason: Nausea Stop: 04/08/22 23:10 Last Admin: 03/14/22 09:28 Dose: 4 mg Ursodiol (Ursodiol 300 Mg Cap) 300 mg PO BID [facility] Stop: 04/09/22 14:59 Last Admin: 03/14/22 10:26 Dose: 300 mg
[2022-03-14 17:06] LABS: Babesia microti DNA Not Detected (Not Detected)
[2022-03-15 06:17] LABS: INR 1.2 (0.9-1.1); Prothrombin Time 12.3 Seconds (9.0-12.0)
[2022-03-15 06:27] LABS: Albumin Globulin Ratio 1.5 (0.9-2); Albumin Level 4.1 gm/dl (3.4-5.0); BUN Creatinine Ratio 20.3 (10-20); Bilirubin,Total 2.3 mg/dl (0.2-1.0); Creatinine Clr Calc Pharmacy 143.7 ml/min; Est GFR (African American) 145.6 ml/min; Est GFR (Non-African American) 125.6 ml/min; Globulin 2.7 gm/dl (2.5-4.0); Potassium 4.6 mmol/L (3.5-5.1); Total Protein 6.8 gm/dl (6.0-8.3)
[2022-03-15] MEDS: ursodioL 300 MG CAP PO SCH (07:53)
[2022-03-15] MEDS: metroNIDAZOLE 500 MG TAB PO SCH (07:53)
[2022-03-15] MEDS: MESALAMINE 1.2 GM PO SCH (07:54)
[2022-03-15] MEDS: DOXYCYCLINE SUSP 25 MG/5 ML 60ML PO SCH (07:54)
[2022-03-15] MEDS: HEPARIN SOD 5,000 UNIT/0.5 ML VIAL SQ SCH (07:54)
--- NOTE | 2022-03-15 12:04 | Gastroenterology Progress Note ---
Date of Service March 15, 2022 Assessment & Plan (1) Abnormal CT scan, gastrointestinal tract: (2) Elevated LFTs: Plan AST improved, Bili continuing to improve. ALT minimally elevated today compared to yesterday. Most likely initial LFT elevation from infectious illness, and increase during hospitalization from Rocephin which is now held. [place] text conversation, case review with Dr. Goldberg automatic folder seamer in [place]. He recommends OP MRI/MRCP. Appt set up for next week and pt aware. Appt set up with Dr. Carpenter, hepatology in [place] on March 21. Pt aware. LFTs standing order placed. Pt to get drawn a day or 2 prior to March 21 appt and also if any dark urine, jaundice, any worsening of any symptoms. Would DC ursodiol. Regular diet. Per Dr. Goldberg, no urgent need for ERCP or liver bx, so will hold on scheduling those. Pt has regular OP GI f/u for UC at [facility] Ivelisse Shaver already scheduled. OK for DC from a GI perspective. Admission and Anticipated Discharge Date Admission Date: March 09, 2022 Subjective 32, male, hx UC Admitted 03/09 for fever, el LFTs, jaundice, N/V LFTs: T Bili 6->2 AST 86-.446 yesterday -> 355 today. ALT 15->81->98 Alk Phos 154->181 yesterday ->162 today. MRCP ? new PSC Testicular discomfort/swelling - resolved. Muscle aches - resolved. Fevers - none since prior to arrival. Jaundice - resolved. Review of Systems Constitutional: + fever (resolved) and + fatigue "getting stronger, more able to walk w/o weakness" Eyes: has had icterus Respiratory: no cough, no dyspnea and no wheezing Cardiovascular: no chest pain, no palpitations and no edema Gastrointestinal: as per Subjective / HPI and + nausea (continues w intermittent nausea) Genitourinary: + scrotal swelling (resolved) and + testicle pain (resolved); no dysuria Integumentary: + rash (resolved) jaundice - resolved Neurologic: no gait abnormality, no unsteadiness and no localized weakness Psychiatric: no depression, no anxiety and no confusion Hematologic / Lymphatic: no easy bleeding new 1cm subq sl tender, "bump" on right lower arm Physical Exam Constitutional: well nourished and cooperative Neck: trachea midline, no thyromegaly Respiratory: normal respiratory effort, lungs clear to auscultation Cardiovascular: RRR, no murmur, no edema Gastrointestinal (Abdomen): normal bowel sounds, soft, nontender, no hepatosplenomegaly Skin: no rashes, warm and dry no jaundice Neurologic: PERRL, EOMI, accommodation nl, no face palsy, no dysarthria Psychiatric: A+Ox3, euthymic affect Lymphatic: no cervical or axillary lymphadenopathy Results & Data ([facility]) Vital Signs (Past 12 Hours) Vital Signs Temp Pulse Resp BP Pulse Ox O2 Del Method 03/15/22 07:35 36.8 C 76 18 127/85 98 Room Air 03/15/22 08:00 Room Air Laboratory Results WBC 7.9, Hb 15.3, Hct 42,8, Plts 377, INR 1.2, Na 133, K 4.6, Cl 106, CO2 24, BUN 14, Cr 0.69. Diagnostic Findings MRCP 03/10/22: 1. No biliary ductal dilatation. No common bile duct calculi. 2. Apparent mild multifocal irregularity of the intrahepatic bile ducts with areas of narrowing. This is likely rtifactual however etiologies such as primary sclerosing cholangitis cannot be completely excluded. 3. Mild splenomegaly. 4. Pancreatic glandular atrophy. CTAP 03/09/22: 1. No bowel obstruction or bowel wall thickening. 2. The appendix is mildly dilated at 8 mm and demonstrates trace periappendiceal inflammation. Correlate with clinical exam findings and patient history to exclude subtle developing acute appendicitis. 3. No pneumoperitoneum or fluid collection. 4. Moderate splenomegaly. 5. Tiny hiatal hernia.
--- NOTE | 2022-03-15 15:43 | Discharge Summary ---
Date of Service March 15, 2022 Admission HPI Per Admitting Provider Pt is a 32 y/o M with hx of UC on mesalamine and peyronies disease came into the ER with acute onset of jaundice and testicular swelling. Per pt on 03/03 pt started to experience fever, fatigue and chills. Then 3 days after he started to have erythematous rash that is warmth to touch all over his body. His PCP started him on doxy for possible tick borne infection. Pt also having intermittent nausea and vomiting (NBNB) with decreased PO intake. Today he started to have testicular swelling with jaundice. Pt denied any travel, did go into [employer] 1 week ago but denied any tick bite. He works from home and vaccinated against MMR. He had COVID infection 2 months ago. He is sexually active with his and denied any dysuria and penile discharge. At bedside complained of LUQ abd soreness and testicular soreness. Denied any acute nausea, CP or SOB. Admission Exam Per Admitting Provider General:.NAD, well developed, well nourished, average body habitus HEENT:.b/l icterus,Normocephalic and atraumatic, Normal Conjunctiva, EOMI Lungs:.No signs of respiratory distress, CTA, no wheezing or crackles Heart:.Normal S1, S2, no murmur Abdominal:.mild TTP of the LUQ, no TTP of the R or L lower quadrant,ND, Soft, normal BS MSK:.No deformities of UE and LE, No leg edema (pt did not want financial foundations associate): b/l testicular swelling and erythema and mild TTP Skin:on the chest area mild skin erythema that is blanching Psych:.AAOx3, normal affect Principal Diagnosis possible tick borne illness Discharge Exam GENERAL: Alert and oriented x3. NAD, on RA. HEENT: No pallor, - icterus. Pupils equal, round and reactive to light. Oral mucosa moist. NECK: No JVD, no neck masses. HEART: S1 and S2 heard. Regular rate and rhythm. No murmur, no gallop. RESPIRATORY SYSTEM: Normal AP diameter. No accessory muscle use. No wheezing, no crackles. ABDOMEN: Soft, bowel sounds present,nontender, no distention. CENTRAL NERVOUS SYSTEM: No facial droop. Speech is clear. Obeys simple commands. Moves extremities. EXTREMITIES: No edema, no erythema seen. : scrotal erythema - resolved, no testicular tenderness, Prehn's sign negative. Discharge Data Allergies Allergy/AdvReac Type Severity Reaction Status Date / Time prednisone Allergy Unknown Hives Verified 03/09/22 23:35 Consultations 03/09/22 18:31 ED Decision to Admit Stat 03/09/22 23:11 Consult Gastroenterology Routine Consult General Surgery Routine 03/11/22 11:14 Consult Infectious Diseases Routine Ordered Studies 03/09/22 14:06 CT abd pelvis IV con only Stat 03/09/22 14:57 US scrotum/testicle Stat 03/10/22 14:57 MR MRCP Routine Hospital Course (1) Jaundice: (2) Abdominal pain: (3) Splenomegaly: (4) Orchitis: (5) Ulcerative colitis: (6) Electrolyte abnormality: Plan #. Jaundice, fever and N/V:for 1 wek [employer]MENT #. H/o U. Colitis on mesalamine -Admitting CT abd showed normal liver and gallbladder but w/ mildly diated appendix (no abd tenderness at presentation) and splenomegaly. - Hepatic picture could be due to a viral vs tick born infection - Admitting Blood culture pending, NGTD - Admitting Serology tests pending - tolerated po doxycycline today 03/14/2022 - continue for 14 day course - continue to monitor for clinical improvement - follow up ID recs - continue doxycycline #. Transaminitis:trend cmp, serology, hep panel pending, gi. LFT slightly uptrending. -GI evaled, - mp 500 bid, c/w mesalamine 4.8 g daily. f/u as OP. -03/10 MRCP reviewed and d/w GI. - increasing AST and ALT (AST>ALT) - GI to repeat MRCP as initial was concerning for PSC but not definitive - improved - likely DILI from ceftriaxone - has follow up with hepatology and GI #. Concern for early appendiceal infection - Gen Sx evaled for concerns of inflammation of appendix, ok w/ atb and ok to resume diet. - c/w rocephin 03/09 and flagyl 03/09; nausea control/indigestion control - changed to levofloxacin and po flagy due to increasing LFTs on cephalosporin - treat for 1 more day - last day 03/15/2022 - completed #. Orchitis with abnormal UA: -pt denied any dysuria -sexually active with his -vaccinated against MMR and no palpable swelling near the neck or jaw -admitting scrotal usg reviewed. - c/w doxy 03/09 - Await mumps IgG and IgM -f/u other serologies. so far either negative or pending -pt reports scrotal erythema resolved and scrotal pain improving, prehn's sign neg. - resolved #. Electrolyte abnormalities:likely 2/2 poor appetite. Monitor and replete. #. UC on mesalamine:c/w mesalamine. DVT PPx: SCD Code Status: FULL CODE Emergency Contact: : Lakeshia ([facility] Pharmacist) [phone] Labs trended to improvement and patient clinically improved and stable - for discharge home 03/15/2022 Total Time Total Time Spent Total Time Spent (In Minutes): 30 Total Time Includes: Examination of the Patient, Discharge Planning, Medication Reconciliation and Communication With Other Providers Discharge Plan Discharge Items Patient Disposition: Home - Self-Care Reason For Visit: JAUNDICE AND FEVER Discharge Diagnosis: likely tick borne illness with complication of medication induced liver injury Activity: As commented below Activity Comment: resume previous activity as tolerated Non-emergency contact: Primary Care Provider, Specialist and [employer] Call non-emergency contact if: you have any medication questions, your symptoms worsen and you have a fever Follow-up/Referrals: Toshia Carpenter DO [Other] (Date & Time 03/21/2022 2:20 PM Provider [facility] Willy Wisdom MD [Primary Care Provider] - (Date & Time 03/22/2022 11:20 AM Provider Willy Wisdom MD Department [facility] ) Diet: Regular Addtl Attending Provider Instructions: You were admitted for fever, rash, jaundice and treated for tick borne illness with doxycycline that you had started as outpatient. You had a CT of you abdomen which showed possible early appendicitis. You received antibiotics with ceftriaxone and metronidazole for this and had subsequent elevation in liver enzymes which was thought to be due to the ceftriaxone, which was stopped and you had slight improvement in some of your LFTs. You also had concern for PSC given you history of UC and elevated ALP and bilirubin on lab work. You had an MRCP which was inconclusive. You were also followed by GI and spoke with ID while you were here. You have hepatology follow up 03/21/2022 and repeat blood work to do to ensure continued resolution of your abnormal liver function tests and to follow up with Hepatology to further work up inconclusive results of your MRCP. You should finish a 14 day course (ends 03/21/2022) of doxycycline and follow up with PCP, Hepatology, and GI. Pending Studies at Discharge: Yes Studies:: anaplasmosis PCR and Ehrlichiosis PCR Stand-Alone Forms: My [facility], Smoking Cessation Medications and DC Order Prescriptions: New doxycycline monohydrate 100 mg capsule 100 mg PO BID Qty: 13 0RF Continued ondansetron HCl 4 mg tablet 2 - 4 mg PO Q8 PRN (Reason: Nausea) famotidine [Pepcid AC] 20 mg Tablet 20 mg PO BID PRN (Reason: Acid Reflux) mesalamine 1.2 gram tablet,delayed release (DR/EC) 4.8 g PO DAILY Discontinued doxycycline hyclate 100 mg capsule 100 mg PO BID Rx Instructions: for 10 days , filled 03/09/22 Discharge Orders: Discharge Order (Routine); Ordered 03/15/22 Ordered By: Alton Quezada Admission Data Admit Date/Time: 03/09/22 19:50 Attending Provider: Alton Quezada Admit Provider: Kassandra Clemens Primary Care Provider: Willy Wisdom Other Providers: Taco Multani ; Rufino Lorenzana ; Leon Mayberry ; Zachary Gallegos ; Petros Rich ; Shankar Alves I. ; Kyrie Gonzales II ; Amy Cohen ; Willy Phelps ; Lex Geronimo Other Interventions: Discharge Summary Assessment (RN) Last Done: 03/15/22 14:13
[2022-03-16 16:56] LABS: Mumps Virus IgM Antibody <1:20 titer
[2022-03-18 12:36] LABS: CMV DNA Qnt Real Time PCR Not Detected; CMV DNA Quant PCR Not Detected log IU/mL; CMV IgM Antibody <30.00 AU/mL
[2022-03-20 01:21] LABS: Q Fever IgG, Phase I NEGATIVE; Q Fever Phase I IgM Antibody NEGATIVE; Q Fever Phase II IgG Antibody NEGATIVE; Q Fever Phase II IgM Antibody NEGATIVE; R. typhi IgG Ab NOT DETECTED; R. typhi IgM Ab NOT DETECTED; RMSF IgG Ab NOT DETECTED; RMSF IgM Ab NOT DETECTED
== END 2022-03-15 15:38 | disposition home or self-care (01) | DRG 868 ==
LOC: ED 13:08 → SUATTDRO 19:50 → 3N 19:50